=== PATIENT | female | born 1955 | race Caucasian/White ===

== ENCOUNTER 2017-05-14 01:21 | Emergency (ER) | payer OTHER, SELFPAY ==
[2017-05-14 01:22] VITALS: BP 159/89; PULSE 150; RESP 16; TEMP 36.6; O2SAT 99; BMI 26.5
--- NOTE | 2017-05-14 01:30 | HMH.EDARPALP ---
ED Disposition Clinical Impression: Atrial flutter Qualifiers: Atrial flutter type: unspecified Qualified Code(s): I48.92 - Unspecified atrial flutter Disposition: Home, Self-Care Condition on Discharge: Good Instructions: DI for Atrial Flutter Additional Instructions: see card today at 0900 - Critical Care Critical Care Time: No Attestation: On 05/14/17, the high probability of a clinically significant, sudden or life threatening deterioration of the following system(s) required my full and direct attention, intervention and personal management. The time I documented below is in addition to time spent performing reported procedures but includes the following listed in this critical care notation. Medical Decision Making - Medical Records Medical records reviewed: Yes: I reviewed the patient's medical records. Vital Signs: 05/14/17 01:22 05/14/17 01:52 05/14/17 01:54 Temperature 98 F Temperature Source Oral Pulse Rate [Right Brachial] 150 H 70 Respiratory Rate 16 16 Blood Pressure [Right Arm] 159/89 157/86 Blood Pressure Mean [Right Arm] 112 109 02 Sat by Pulse Oximetry 99 100 Oxygen Delivery Method Room Air 05/14/17 05:14 Temperature Temperature Source Pulse Rate [Right Brachial] 65 Respiratory Rate 16 Blood Pressure [Right Arm] 192/75 Blood Pressure Mean [Right Arm] 114 02 Sat by Pulse Oximetry 99 Oxygen Delivery Method Room Air - Lab Data Lab results reviewed: Yes: I reviewed the patient's lab results. Lab Results 05/14/17 01:40: WBC 8.7, RBC 4.67, Hgb 14.3, Hct 42.8, MCV 91.6, MCH 30.6, MCHC 33.4, RDW 12.0, Plt Count 280, MPV 7.0 L, Neut % (Auto) 67.0, Lymph % (Auto) 23.8, [place] % (Auto) 5.1, Eos % (Auto) 2.2, Baso % (Auto) 0.4, Neut # (Auto) 5.8, Lymph # (Auto) 2.1, [place] # (Auto) 0.4, Eos # (Auto) 0.2, Baso # (Auto) 0.0 05/14/17 01:40: Sodium 141, Potassium 3.7, Chloride 104, Carbon Dioxide 26, Anion Gap 14.7, BUN 16, Creatinine 1.01, Estimated Creat Clear 62, Estimated GFR 56 L, Est GFR ( Amer) 67, Glucose 109 H, Calcium 9.3, Total Bilirubin 0.5, AST 20, ALT 37, Alkaline Phosphatase 100, Total Creatine Kinase 104, CK-MB (CK-2) 1.2, CK-MB (CK-2) Rel Index 1.2, Troponin I < 0.02, Total Protein 7.8, Albumin 3.9, Globulin 3.9 H, Albumin/Globulin Ratio 1.0 L, TSH 3.64, Thyroxine (T4) 7.5 05/14/17 05:10: Troponin I < 0.02 Result diagrams: 05/14/17 01:40 05/14/17 01:40 Orders (Tests/Meds): ED MEDICATIONS Generic Name Dose Route Start Last Admin Trade Name Freq PRN Reason Stop Dose Admin Diltiazem HCl 100 mg/ Sodium 100 mls @ 5 mls/hr 05/14/17 02:03 Chloride IV 06/13/17 02:02 .Q20H KRISHNA Protocol Discontinued Medications Generic Name Dose Route Start Last Admin Trade Name Freq PRN Reason Stop Dose Admin Adenosine 6 mg 05/14/17 01:31 05/14/17 01:40 Adenosine 6mg/2ml Vial IV 05/14/17 01:32 6 mg ONCE ONE Administration Diltiazem HCl 0 mg 05/14/17 01:48 Cardizem 100mg Adv IV 05/14/17 01:49 ONCE ONE Protocol Diltiazem HCl 10 mg 05/14/17 01:46 05/14/17 01:50 Cardizem 25mg/5ml Vial IV 05/14/17 01:47 10 mg ONCE ONE Administration ORDERS Category Date Time Status ECG Request by /Peter Stat Y 05/14/17 01:32 Ordered - Radiology Data #1 Image(s): Chest Image Reviewed: Yes I reviewed the patient's radiology image Preliminary Findings: Normal/NAD - ECG Data Tracing #1 I reviewed this ECG and interpreted as documented below: Arrhythmias present: aflutter Ischemic changes: non-specific ST-T wave changes Tracing #2 I reviewed this ECG and interpreted as documented below: Normal Sinus Rhythm: Yes Ischemic changes: non-specific ST-T wave changes - Alejo Inquiry Pt receiving controlled substance: No Arrhythmia/Palpitations HPI - General Chief Complaint: Arrhythmia/Palpitations Stated Complaint: PALPITATIONS Time Seen by Provider: 05/14/17 01:30 Mode of Arrival: Ambul
--- NOTE | 2017-05-14 01:32 | XR_ITS ---
XR chest portable HISTORY: ITS.REASON: PALPITATIONS ORDERING PHYSICIAN: Tony Sims MD PATIENT AGE: 61 years COMPARISON: None available FINDINGS: Mild cardiomegaly without failure. Lungs are clear bilaterally. No acute bony anomalies. IMPRESSION: Borderline cardiomegaly otherwise negative with no acute finding.
--- NOTE | 2017-05-14 01:41 | ED_ITS ---
ED Disposition Clinical Impression: Atrial flutter Qualifiers: Atrial flutter type: unspecified Qualified Code(s): I48.92 - Unspecified atrial flutter Disposition: Home, Self-Care Condition on Discharge: Good Instructions: DI for Atrial Flutter Additional Instructions: see card today at 0900 - Critical Care Critical Care Time: No Attestation: On 05/14/17, the high probability of a clinically significant, sudden or life threatening deterioration of the following system(s) required my full and direct attention, intervention and personal management. The time I documented below is in addition to time spent performing reported procedures but includes the following listed in this critical care notation. Medical Decision Making - Medical Records Medical records reviewed: Yes: I reviewed the patient's medical records. Vital Signs: 05/14/17 01:22 05/14/17 01:52 05/14/17 01:54 Temperature 98 F Temperature Source Oral Pulse Rate [Right Brachial] 150 H 70 Respiratory Rate 16 16 Blood Pressure [Right Arm] 159/89 157/86 Blood Pressure Mean [Right Arm] 112 109 02 Sat by Pulse Oximetry 99 100 Oxygen Delivery Method Room Air 05/14/17 05:14 Temperature Temperature Source Pulse Rate [Right Brachial] 65 Respiratory Rate 16 Blood Pressure [Right Arm] 192/75 Blood Pressure Mean [Right Arm] 114 02 Sat by Pulse Oximetry 99 Oxygen Delivery Method Room Air - Lab Data Lab results reviewed: Yes: I reviewed the patient's lab results. Lab Results 05/14/17 01:40: WBC 8.7, RBC 4.67, Hgb 14.3, Hct 42.8, MCV 91.6, MCH 30.6, MCHC 33.4, RDW 12.0, Plt Count 280, MPV 7.0 L, Neut % (Auto) 67.0, Lymph % (Auto) 23.8, [place] % (Auto) 5.1, Eos % (Auto) 2.2, Baso % (Auto) 0.4, Neut # (Auto) 5.8 , Lymph # (Auto) 2.1, [place] # (Auto) 0.4, Eos # (Auto) 0.2, Baso # (Auto) 0.0 05/14/17 01:40: Sodium 141, Potassium 3.7, Chloride 104, Carbon Dioxide 26, Anion Gap 14.7, BUN 16, Creatinine 1.01, Estimated Creat Clear 62, Estimated GFR 56 L, Est GFR ( Amer) 67, Glucose 109 H, Calcium 9.3, Total Bilirubin 0.5, AST 20, ALT 37, Alkaline Phosphatase 100, Total Creatine Kinase 104, CK-MB (CK-2) 1.2, CK-MB (CK-2) Rel Index 1.2, Troponin I < 0.02, Total Protein 7.8, Albumin 3.9, Globulin 3.9 H, Albumin/Globulin Ratio 1.0 L, TSH 3.64 , Thyroxine (T4) 7.5 05/14/17 05:10: Troponin I < 0.02 Result diagrams: 05/14/17 01:40 05/14/17 01:40 Orders (Tests/Meds): ED MEDICATIONS Generic Name Dose Route Start Last Admin Trade Name Freq PRN Reason Stop Dose Admin Diltiazem HCl 100 mg/ Sodium 100 mls @ 5 mls/hr 05/14/17 02:03 Chloride IV 06/13/17 02:02 .Q20H KRISHNA Protocol Discontinued Medications Generic Name Dose Route Start Last Admin Trade Name Freq PRN Reason Stop Dose Admin Adenosine 6 mg 05/14/17 01:31 05/14/17 01:40 Adenosine 6mg/2ml Vial IV 05/14/17 01:32 6 mg ONCE ONE Administration Diltiazem HCl 0 mg 05/14/17 01:48 Cardizem 100mg Adv IV 05/14/17 01:49 ONCE ONE Protocol Diltiazem HCl 10 mg 05/14/17 01:46 05/14/17 01:50 Cardizem 25mg/5ml Vial IV 05/14/17 01:47 10 mg ONCE ONE Administration ORDERS Category Date Time Status ECG Re
[2017-05-14 01:52] VITALS: BP 157/86
[2017-05-14 01:54] VITALS: PULSE 70; RESP 16; O2SAT 100
[2017-05-14 03:35] LABS: Red Blood Count 4.67 M/mm3 (4.20-5.40); White Blood Count 8.7 K/mm3 (4.8-10.8)
[2017-05-14 03:36] LABS: Basophils % 0.4 % (0.1-2.0); Eosinophils # 0.2 K/mm3 (0.0-0.4); Eosinophils % 2.2 % (0.1-12.0); Hematocrit 42.8 % (37.0-47.0); Hemoglobin 14.3 g/dL (12.2-16.2); Lymphocytes # 2.1 K/mm3 (0.7-4.5); Lymphocytes % 23.8 K/mm3 (10-50); Mean Corpuscular HGB Conc 33.4 g/dL (31.8-35.4); Mean Corpuscular Hemoglobin 30.6 pg (27.0-31.2); Mean Corpuscular Volume 91.6 fl (81-99); Monocytes # 0.4 K/mm3 (0.1-1.0); Monocytes % 5.1 % (1.7-9.3); Neutrophils # 5.8 K/mm3 (1.8-7.8); Platelet Count 280 K/mm3 (142-424)
[2017-05-14 03:37] LABS: Anion Gap 14.7 mEq/L (5-15); CKMB Relative Index 1.2 U/L (0-4.0); Carbon Dioxide 26 mmol/L (21.0-32.0); Chloride 104 mmol/L (98-107); Creatine Kinase 104 U/L (26-192); Creatine Kinase MB 1.2 mg/ml (0.0-3.6); Potassium 3.7 mmoL/L (3.5-5.1); Sodium 141 mmol/L (136-145); Troponin I < 0.02 ng/ml (0.00-0.06)
[2017-05-14 03:38] LABS: Alanine Aminotransferase 37 U/L (12-78); Albumin Level 3.9 gm/dL (3.4-5.0); Alkaline Phosphatase 100 U/L (46-116); Aspartate Amino Transferase 20 U/L (15-37); Bilirubin,Total 0.5 mg/dL (0.2-1.0); Blood Urea Nitrogen 16 mg/dL (7-18); Calcium 9.3 mg/dL (8.5-10.1); Creatinine Clearance Estimated 62 mL/min (0-300); Creatinine,Serum 1.01 mg/dL (0.55-1.02); Estimated Glomerular Filt Rate 56 ml/min (>60); GFR (African American) 67 ML/MIN (>60); Globulin 3.9 gm/dl (1.3-3.2); Glucose 109 mg/dL (74-106); Total Protein,Serum 7.8 gm/dL (6.4-8.2)
[2017-05-14 03:39] LABS: T4 (Thyroxine) 7.5 ug/dl (4.7-13.3); Thyroid Stimulating Hormone 3.64 uIU/ml (0.358-3.740)
[2017-05-14 05:14] VITALS: BP 192/75; PULSE 65; RESP 16; O2SAT 99
[2017-05-14 05:31] LABS: Troponin I < 0.02 ng/ml (0.00-0.06)
[2017-05-14 05:40] VITALS: BP 192/75; PULSE 65; RESP 16; TEMP 36.6
== END 2017-05-14 05:41 | disposition home or self-care (01) ==
PROVIDERS: Emergency Provider Emergency Medicine
DX: R00.2 Palpitations (principal); I48.92 Unspecified atrial flutter; Z88.6 Allergy status to analgesic agent; Z88.7 Allergy status to serum and vaccine
CPT/HCPCS: 71045; 80053; 82550; 82553; 84436; 84443; 84484; 85025; 93005; 93041; 96365; 96375; 99284

== ENCOUNTER → 2017-05-22 09:23 | Outpatient (CLI) | payer OTHER, SELFPAY ==
--- NOTE | 2017-05-22 09:26 | CA_ITS ---
PROCEDURE: 2-D M-mode and color Doppler study INDICATIONS FOR THE TEST: Chest pain COPD Heart Murmur Tobacco Smoking Palpitations Fatigue Syncope Edema HypertensionxDiabetes Mellitus Rheumatic Fever SOB GERARDO Obesity Hyperlipidemia Family History HD Additional History PATIENT INFORMATION HEIGHT: 5' 3'' WEIGHT: 153 GENDER: Female B/P: 154/80 2-D/M-MODE INTERPRETATION: 2-D MEASUREMENTS OBSERVED VALUES IN CMS Right Ventricular Dimension (RVDd) 2.2 Interventricular Septum (Thickness)(IVsd) 1.1 Left Ventricular Internal Dimensions(LVIDd) 5.0 Left Ventricular Posterior Wall (Thickness)(LVPWd) 1.1 Aortic Root 2.6 Aortic Cusp Separation Left Atrial Dimensions (LAD) 3.7 2D 1. Left atrium is mildly enlarged, left ventricle is normal size, visually estimated ejection fraction 55% with no obvious regional wall motion abnormality. 2. The right atrium and right ventricle are normal size and contractility. 3. The aortic valve is minimally thickened and fibrosed. 4. The mitral and tricuspid valve leaflets are minimally thickened. 5. The pulmonic valve is poorly visualized 6. No significant pericardial effusion noted. DOPPLER INTERROGATION: Doppler interrogation of the aortic, mitral and tricuspid valvular presence of mild mitral, mild aortic and tricuspid regurgitation, tricuspid and jet velocity insufficient for calculation of the right ventricular systolic pressure, diastolic parameters are inconclusive. CONCLUSION: 1. Mildly enlarged left atrium, normal left ventricular size, mild concentric left ventricular hypertrophy, visually estimated ejection fraction 55% with no obvious regional wall motion abnormality, diastolic parameters are inconclusive. 2. Mild aortic, mild mitral and tricuspid regurgitation 3. No significant pericardial effusion noted.
== END ==
PROVIDERS: PCP Internal Medicine; Visit Provider Internal Medicine
DX: R00.2 Palpitations (principal); I48.92 Unspecified atrial flutter; Z82.49 Family history of ischemic heart disease and other diseases of the circulatory system
CPT/HCPCS: 93306

== ENCOUNTER → 2017-06-06 09:51 | Outpatient (CLI) | payer OTHER, SELFPAY ==
[2017-06-06 10:15] LABS: Basophils # 0.1 K/mm3 (0-0.2); Basophils % 0.8 % (0.1-2.0); Eosinophils # 0.3 K/mm3 (0.0-0.4); Eosinophils % 4.2 % (0.1-12.0); Hematocrit 44.7 % (37.0-47.0); Hemoglobin 14.4 g/dL (12.2-16.2); Lymphocytes # 1.9 K/mm3 (0.7-4.5); Lymphocytes % 28.8 K/mm3 (10-50); Mean Corpuscular HGB Conc 32.2 g/dL (31.8-35.4); Mean Corpuscular Hemoglobin 29.7 pg (27.0-31.2); Mean Corpuscular Volume 92.2 fl (81-99); Mean Platelet Volume 7.2 fl (7.4-10.4); Monocytes # 0.3 K/mm3 (0.1-1.0); Monocytes % 4.7 % (1.7-9.3); Neutrophils % 61.6 % (37.0-80.0); Platelet Count 372 K/mm3 (142-424); Red Blood Count 4.84 M/mm3 (4.20-5.40); Red Cell Distribution Width 11.7 % (11.5-17.5); White Blood Count 6.5 K/mm3 (4.8-10.8)
[2017-06-06 10:32] LABS: Alanine Aminotransferase 41 U/L (12-78); Albumin Level 3.7 gm/dL (3.4-5.0); Alkaline Phosphatase 99 U/L (46-116); Aspartate Amino Transferase 16 U/L (15-37); Bilirubin,Direct 0.1 mg/dL (0.0-0.2); Bilirubin,Total 0.3 mg/dL (0.2-1.0); Blood Urea Nitrogen 17 mg/dL (7-18); Carbon Dioxide 29 mmol/L (21.0-32.0); Chloride 107 mmol/L (98-107); Chol/HDL Ratio 2.3 (1-3.5); Cholesterol 204 mg/dL (140-200); Creatinine,Serum 1.02 mg/dL (0.55-1.02); Estimated Glomerular Filt Rate 55 ml/min (>60); Free T4 (Free Thyroxine) 0.92 ng/dl (0.76-1.46); GFR (African American) 66 ML/MIN (>60); Glucose 101 mg/dL (74-106); HDL Cholesterol 87 mg/dL (29-89); LDL Cholesterol 103 mg/dL (0-130); Sodium 143 mmol/L (136-145); Thyroid Stimulating Hormone 2.23 uIU/ml (0.358-3.740); Total Protein,Serum 7.9 gm/dL (6.4-8.2); Triglycerides 71 mg/dL (30-200); VLDL Cholesterol 14 mg/dL (0-40)
== END ==
PROVIDERS: Visit Provider Internal Medicine Cardiovascular Disease
DX: I48.92 Unspecified atrial flutter (principal); I10 Essential (primary) hypertension; R00.2 Palpitations
CPT/HCPCS: 36415; 80048; 80061; 80076; 84439; 84443; 85025

== ENCOUNTER → 2018-11-09 08:51 | Outpatient (CLI) | payer OTHER, SELFPAY ==
[2018-11-09 18:01] LABS: Alanine Aminotransferase 26 U/L (12-78); Albumin Level 3.8 gm/dL (3.4-5.0); Alkaline Phosphatase 86 U/L (46-116); Aspartate Amino Transferase 13 U/L (15-37); Bilirubin,Direct 0.1 mg/dL (0.0-0.2); Bilirubin,Indirect 0.2 mg/dL (0.0-0.9); Bilirubin,Total 0.3 mg/dL (0.2-1.0); Chol/HDL Ratio 2.1 (1-3.5); Cholesterol 224 mg/dL (140-200); HDL Cholesterol 109 mg/dL (29-89); LDL Cholesterol 104 mg/dL (0-130); Total Protein,Serum 7.6 gm/dL (6.4-8.2); Triglycerides 57 mg/dL (30-200); VLDL Cholesterol 11 mg/dL (0-40)
== END ==
PROVIDERS: Visit Provider Internal Medicine Cardiovascular Disease
DX: E78.5 Hyperlipidemia, unspecified (principal); I10 Essential (primary) hypertension; I48.92 Unspecified atrial flutter; R00.2 Palpitations
CPT/HCPCS: 36415; 80061; 80076

== ENCOUNTER → 2019-05-21 08:58 | Outpatient (CLI) | payer OTHER, SELFPAY ==
[2019-05-21 10:03] LABS: Alanine Aminotransferase 24 U/L (12-78); Albumin Level 4.6 g/dl (3.5-5.0); Alkaline Phosphatase 86 U/L (38-126); Aspartate Amino Transferase 27 U/L (14-36); Bilirubin,Indirect 0.6 mg/dL (0.0-0.9); Bilirubin,Total 0.6 mg/dl (0.2-1.3); Bilirubin,Unconjugated 0.7 mg/dL (0.0-1.1); Cholesterol 216 mg/dl (140-200); Total Protein,Serum 7.5 g/dl (6.3-8.2); Triglycerides 106 mg/dl (30-150); VLDL Cholesterol 21 mg/dL (0-40)
[2019-05-21 10:15] LABS: Direct LDL Cholesterol 70.88 mg/dL (100-129)
[2019-05-21 10:46] LABS: HDL Cholesterol 134 mg/dl (40-60)
== END ==
PROVIDERS: Visit Provider Internal Medicine Cardiovascular Disease
DX: E78.5 Hyperlipidemia, unspecified (principal); I10 Essential (primary) hypertension; I48.91 Unspecified atrial fibrillation
CPT/HCPCS: 36415; 80061; 80076

== ENCOUNTER 2021-11-27 00:28 | Emergency (ER) | payer MEDICARE, SELFPAY ==
[2021-11-27 00:30] VITALS: BP 175/85; PULSE 99; RESP 16; TEMP 36.6; O2SAT 99; BMI 26.5
--- NOTE | 2021-11-27 00:36 | ECG_ITS ---
APPROVED REPORT Exam: Resting ECG HR:148 bpm ECG Measurements Heart Rate 148 AXES QRSd 85 QRS 39 QT 286 T 66 QTc 371 Conclusion ATRIAL FIBRILLATION WITH RAPID VENTRICULAR RESPONSE WITH ABERRANT CONDUCTION OR VENTRICULAR PREMATURE COMPLEXES NONSPECIFIC ST & T-WAVE ABNORMALITY ABNORMAL RHYTHM ECG UNCONFIRMED REPORT Electronically signed by : Marcos Fisher MD 11/27/2021 13:48:04
--- NOTE | 2021-11-27 00:38 | XR_ITS ---
PROCEDURE INFORMATION: Exam: XR Chest Exam date and time: 11/27/2021 12:57 AM Age: 66 years old Clinical indication: Other: Tachycardia; Additional info: Heart racing TECHNIQUE: Imaging protocol: Radiologic exam of the chest. Views: 1 view. COMPARISON: CR CXR2V XR chest 2V 09/19/2017 2:18 AM FINDINGS: Lungs: Unremarkable. No consolidation. Pleural spaces: Unremarkable. No pleural effusion. No pneumothorax. Heart/Mediastinum: Unremarkable. No cardiomegaly. Bones/joints: Unremarkable. IMPRESSION: No acute findings.
[2021-11-27 00:50] LABS: Coronavirus 19, PCR Not Detected (NotDetected); Influenza A, PCR Not Detected (NotDetected); Influenza B, PCR Not Detected (NotDetected)
[2021-11-27 00:51] LABS: Basophils # 0.1 K/mm3 (0-0.2); Basophils % 1.3 % (0.1-2.0); Eosinophils # 0.4 K/mm3 (0.0-0.4); Eosinophils % 3.8 % (0.1-12.0); Hematocrit 44.5 % (37.0-47.0); Hemoglobin 14.3 g/dL (12.2-16.2); Lymphocytes # 2.5 K/mm3 (0.7-4.5); Lymphocytes % 27.8 % (10-50); Mean Corpuscular Volume 93.5 fl (81-99); Mean Platelet Volume 7.7 fl (7.4-10.4); Monocytes # 0.5 K/mm3 (0.1-1.0); Monocytes % 5.5 % (1.7-9.3); Neutrophils # 5.6 K/mm3 (1.8-7.8); Neutrophils % 61.5 % (37.0-80.0); Platelet Count 408 K/mm3 (142-424); Red Blood Count 4.76 M/mm3 (4.20-5.40); Red Cell Distribution Width 12.4 % (11.5-17.5); White Blood Count 9.1 K/mm3 (4.8-10.8)
--- NOTE | 2021-11-27 00:52 | PC.NURSE ---
edi on phone with dr houston
[2021-11-27 01:00] VITALS: BP 152/84; PULSE 64; RESP 20; O2SAT 99
[2021-11-27 01:00] LABS: Chloride 109 mmol/L (98-107); Potassium 3.8 mmoL/L (3.5-5.1); Sodium 144 mmol/L (136-145)
[2021-11-27 01:02] LABS: Alanine Aminotransferase 27 U/L (12-78); Aspartate Amino Transferase 37 U/L (14-36); Blood Urea Nitrogen 14 mg/dl (7-17); Creatinine Clearance Estimated 59 mL/min (50-200); Estimated Glomerular Filt Rate 72 ml/min (>60); GFR (African American) 87 ML/MIN (>60)
[2021-11-27 01:03] LABS: Albumin/Globulin Ratio 1.5 (1.1-1.8); Alkaline Phosphatase 123 U/L (38-126); Anion Gap 14.8 mEq/L (5-15); Bilirubin,Total 0.3 mg/dl (0.2-1.3); Calcium 10.3 mg/dl (8.4-10.2); Carbon Dioxide 24 mmol/L (22.0-30.0); Globulin 3.4 g/dL (1.3-3.2); Glucose 115 mg/dl (74-100); Total Protein,Serum 8.4 g/dl (6.3-8.2)
[2021-11-27 01:08] LABS: C-Reactive Protein 1.4 mg/L (0-4)
[2021-11-27 01:15] VITALS: BP 153/78; PULSE 118; RESP 16; O2SAT 98
[2021-11-27 01:39] LABS: Erythrocyte Sedimentation Rate 20 mm/hr (0-30)
[2021-11-27 01:40] LABS: T4 (Thyroxine) 7.3 ug/dl (5.53-11.0)
[2021-11-27 01:44] LABS: Troponin I < 0.01 ng/ml (0.00-0.034)
[2021-11-27 01:53] LABS: Thyroid Stimulating Hormone 3.78 uIU/mL (0.465-4.68)
[2021-11-27 02:00] VITALS: BP 150/77; PULSE 59; RESP 16; O2SAT 98
--- NOTE | 2021-11-27 02:20 | HMH.EDARPALP ---
Discharge Plan Disposition Patient Disposition: Home, Self-Care Chief Complaint: Arrhythmia/Palpitations Prescriptions Prescriptions: No Action aspirin [Aspir-81] 81 mg tablet,delayed release (DR/EC) 81 mg PO DAILY losartan 50 mg tablet See Rx Instructions .ROUTE .COMPLEX Rx Instructions: TAKE 1 TABLET BY MOUTH ONCE DAILY FOR HYPERTENSION. atorvastatin [Lipitor] 10 mg tablet 10 mg PO DAILY diltiazem HCl [Cardizem CD] 120 mg capsule,extended release 24hr 120 mg PO DAILY Referrals Follow up/Referrals: Provider,Referral, MD [Primary Care Provider] - See instructions Clinical Impressions Clinical Impression: Atrial fibrillation with rapid ventricular response Instructions Patient Instructions: Cardiac Arrhythmia (Alternative Therapy) Discharge ED Provider: Tony Sims Arrhythmia/Palpitations HPI General Chief Complaint: Arrhythmia/Palpitations Stated Complaint: heart racing Time Seen by Provider: 11/27/21 02:20 Mode of Arrival: Ambulatory Source of Information: Patient and Medical Record Limitations: No Limitations History of Present Illness HPI narrative: pt with increased hr w/o pain or syncope presents for eval - has been compliant with meds complaint: rapid heart beat Onset (ago): hour(s) Duration: constant Severity: moderate Context: occurred during rest Arrhythmia history: atrial fibrillation Associated symptoms: denies other symptoms Treatments prior to arrival: calcium channel shona Related Data Home Medications Medication Instructions Recorded Confirmed aspirin 81 mg tablet,delayed 81 mg PO DAILY heart health 10/22/18 11/27/21 release (Aspir-) atorvastatin 10 mg tablet (Lipitor) 10 mg PO DAILY High cholesterol 11/27/21 11/27/21 diltiazem HCl 120 mg 120 mg PO DAILY Heart rhythm 11/27/21 11/27/21 capsule,extended release 24 hr (Cardizem CD) losartan 50 mg tablet See Rx Instructions .Route 11/27/21 11/27/21 .COMPLEX High blood pressure Allergies Allergy/AdvReac Type Severity Reaction Status Date / Time tetanus and diphtheria Allergy Verified 08/03/21 09:45 toxoids codeine AdvReac Verified 08/03/21 09:45 [facility] Medical History (Updated 11/27/21 @ 02:33 by Tony Sims MD) Atrial flutter High cholesterol HTN (hypertension) Sinus bradycardia Social History Smoking Status: Never smoker alcohol intake: current substance use type: denies use current occupational status: employed Travel in the last 8 weeks: None ROS Obtained: Yes All systems reviewed & no additional complaints except as documented Physical Exam General General appearance: alert Head Head exam: normocephalic Eye Eye exam: Present PERRL and EOMI ENT ENT exam: Present mucous membranes moist Neck Neck exam: Present trachea midline Respiratory Respiratory exam: Present normal lung sounds bilaterally Cardiovascular Cardiovascular exam: Present tachycardia, irregular rhythm and systolic murmur Abdominal Exam Abdominal exam: Present soft Extremities Exam Extremities exam: Present full ROM Neurological Exam Neurological exam: Present alert, oriented X3 and CN II-XII intact Psychiatric Psychiatric exam: Present normal affect Skin Skin exam: Absent rash Medical Decision Making Medical Records Medical records reviewed: Yes I reviewed the patient's medical records. Alejo Inquiry Pt receiving controlled substance: No Vital Signs: 11/27/21 00:30 11/27/21 01:00 11/27/21 01:15 Temperature 98 F Temperature Source Oral Pulse Rate 64 118 H Pulse Rate [Right] 99 H Respiratory Rate 16 20 16 Blood Pressure 152/84 H 153/78 H Blood Pressure [Right Arm] 175/85 H Blood Pressure Mean Blood Pressure Mean [Right Arm] 115 02 Sat by Pulse Oximetry 99 99 98 11/27/21 02:00 Temperature Temperature Source Pulse Rate 59 L Pulse Rate [Right] Respiratory Rate 16 Blood Pressure 150/77 H Blood Pressure [Right Arm
[2021-11-27 02:30] VITALS: BP 140/71; PULSE 50; RESP 16; TEMP 36.6; O2SAT 99
[2021-11-27 02:30] LABS: Procalcitonin 0.054 ng/mL (0.0-2.0)
== END 2021-11-27 02:44 | disposition home or self-care (01) ==
PROVIDERS: Emergency Provider Emergency Medicine
DX: I48.91 Unspecified atrial fibrillation (principal); I48.92 Unspecified atrial flutter; I10 Essential (primary) hypertension; R00.2 Palpitations; R00.1 Bradycardia, unspecified; E78.00 Pure hypercholesterolemia, unspecified; Z20.822 Contact with and (suspected) exposure to COVID-19; Z79.01 Long term (current) use of anticoagulants; Z79.82 Long term (current) use of aspirin; Z79.899 Other long term (current) drug therapy; Z88.5 Allergy status to narcotic agent; Z88.7 Allergy status to serum and vaccine
CPT/HCPCS: 71045; 80053; 84145; 84436; 84443; 84484; 85025; 85651; 86140; 93005; 99284; C9803; U0003; U0005

== ENCOUNTER → 2021-12-05 07:40 | Outpatient (CLI) | payer MEDICARE, SELFPAY ==
--- NOTE | 2021-12-05 | CA_ITS ---
APPROVED REPORT EXAM: Comprehensive 2D, Doppler, and color-flow Echocardiogram Family Practitioner: Geeta Lozoya, RCS, RVS Ht: 5 ft 3 in Wt: 156lbs BSA: 1.74 BP: 147/62 mmHg Indications: AFIB, HTN, HLD, Palitations, Murmur 2D Dimensions Aortic Root 2.62 cm LA Volume 68.60 mL Left Atrium 3.38 cm LA Volume Index 39.42 mL/m2 (M/F) 16-34 LVOT 2.01 cm (M/F) 1.5-2.5 M-Mode Dimensions RVDd 2.43 cm (0.9-2.6) LA Diam 4.34 cm (1.9-4.0) LVDd 5.00 cm (3.5-5.7) Ao Diam 3.01 cm (2.0-3.7) LVDs 3.45 cm (3.5-5.7) IVSd 0.80 cm (0.6-1.1) PWd 0.61 cm (0.6-1.1) EF (Teich) 66.70% EPSs 0.38 cm FS 37.30% EDV (Teich) 147.40 mL TAPSE 2.38 (<1.7) ESV (Teich) 49.10 mL LV Diastology E Decel Time 210.00 (160-240 msec) E/A Ratio 1.20 MED E' 6.70 (< 7 cm/sec) MED A' 7.20 cm/s E'/MED E' Ratio 15.13 (>14) LAT E' 8.90 (<10 cm/sec) LAT A' 7.40 cm/s E/LAT E' Ratio 11.39 (>14) Aortic Valve LVOT Max 110.00 (70-110 cm/s) LVOT VTI 30.07 cm AoV Peak Danny. 159.00 (50-130 cm/s) AO Peak GR. 10.10 mmHg AO Mean GR. 4.60 (<5 mmHg) AO VTI 40.29 (18-25 cm) JUANCARLOS (VTI) 2.37 (2.5-4.5 cm2) Mitral Valve MV A Velocity 85.00 (40-130 cm/s) E/A Ratio 1.20 MV Decel. Time 210.00 (160-240 ms) MV Mean Gr. 1.30 (<2mmHg) MV PHT 50.00 ms Pulmonary Valve PV Peak Velocity 91.00 (50-150 cm/s) Tricuspid Valve TR P. Velocity 230.00 cm/s RAP Estimate 10.00 mmHg RVSP 31.20 mmHg Left Ventricle Left atrium is moderately enlarged, left ventricle is normal size, mild concentric left ventricular hypertrophy, estimated ejection fraction 55% with no regional wall motion abnormality, grade 2 diastolic dysfunction seen without tissue Doppler evidence of raise left atrial pressure. Right Ventricle Right atrium and right ventricle are normal size and contractility. Aortic Valve Aortic valve is thickened and calcified without aortic stenosis aortic insufficiency. Mitral Valve Mitral valve leaflets are minimally thickened, there is mild mitral regurgitation. Tricuspid Valve Tricuspid valve grossly normal, there is mild tricuspid regurgitation, tricuspid regurgitation jet velocity is inadequate for calculation of the right ventricular systolic pressure. Pulmonic Valve Pulmonic valve is poorly visualized. Great Vessels Aortic root is normal size. Inferior vena cava is poorly visualized. Pericardium No significant pericardial effusion noted. Conclusion 1. Moderately enlarged left atrium, normal left ventricular size, mild concentric left ventricular hypertrophy, estimated ejection fraction 55% with no regional wall motion abnormality, grade 2 diastolic dysfunction seen without tissue Doppler evidence of raise left atrial pressure. 2. Mild mitral and tricuspid regurgitation. 3. No significant pericardial effusion noted. 4. Inferior vena cava is poorly visualized. Electronically signed by : Tawanda Riley MD 12/05/2021 21:23:00
== END ==
PROVIDERS: Visit Provider Nurse Practitioner Family
DX: I48.0 Paroxysmal atrial fibrillation (principal)
CPT/HCPCS: 93306

== ENCOUNTER → 2022-01-01 08:19 | Outpatient (CLI) | payer MEDICARE, SELFPAY ==
[2022-01-01 09:01] LABS: Basophils # 0.1 K/mm3 (0-0.2); Basophils % 2.1 % (0.1-2.0); Eosinophils # 0.3 K/mm3 (0.0-0.4); Hematocrit 38.9 % (37.0-47.0); Hemoglobin 12.8 g/dL (12.2-16.2); Lymphocytes # 1.8 K/mm3 (0.7-4.5); Lymphocytes % 29.6 % (10-50); Mean Corpuscular Hemoglobin 30.9 pg (27.0-31.2); Mean Corpuscular Volume 93.7 fl (81-99); Mean Platelet Volume 7.2 fl (7.4-10.4); Monocytes # 0.4 K/mm3 (0.1-1.0); Monocytes % 5.7 % (1.7-9.3); Neutrophils # 3.5 K/mm3 (1.8-7.8); Neutrophils % 57.6 % (37.0-80.0); Platelet Count 372 K/mm3 (142-424); Red Blood Count 4.15 M/mm3 (4.20-5.40); Red Cell Distribution Width 12.3 % (11.5-17.5); White Blood Count 6.2 K/mm3 (4.8-10.8)
[2022-01-01 09:34] LABS: Alanine Aminotransferase 43 U/L (12-78); Albumin Level 4.1 g/dl (3.5-5.0); Alkaline Phosphatase 116 U/L (38-126); Anion Gap 11.9 mEq/L (5-15); Aspartate Amino Transferase 38 U/L (14-36); Bilirubin,Direct 0.1 mg/dl (0.0-0.4); Bilirubin,Indirect 0.2 mg/dL (0.0-0.9); Bilirubin,Total 0.3 mg/dl (0.2-1.3); Bilirubin,Unconjugated 0.2 mg/dL (0.0-1.1); Blood Urea Nitrogen 15 mg/dl (7-17); Calcium 9.4 mg/dl (8.4-10.2); Carbon Dioxide 25 mmol/L (22.0-30.0); Chloride 107 mmol/L (98-107); Chol/HDL Ratio 2.5 (1-3.5); Cholesterol 226 mg/dl (140-200); Estimated Glomerular Filt Rate 62 ml/min (>60); GFR (African American) 76 ML/MIN (>60); Glucose 90 mg/dl (74-100); HDL Cholesterol 90 mg/dl (40-60); Potassium 3.9 mmoL/L (3.5-5.1); Sodium 140 mmol/L (136-145); Total Protein,Serum 6.8 g/dl (6.3-8.2); Triglycerides 135 mg/dl (30-150); VLDL Cholesterol 27 mg/dL (0-40)
[2022-01-01 09:45] LABS: Direct LDL Cholesterol 97.82 mg/dL (100-129)
[2022-01-01 09:50] LABS: Free T4 (Free Thyroxine) 0.71 ng/dl (0.78-2.19)
[2022-01-01 10:03] LABS: Thyroid Stimulating Hormone 2.98 uIU/mL (0.465-4.68)
== END ==
PROVIDERS: Visit Provider Nurse Practitioner Family
DX: E78.2 Mixed hyperlipidemia (principal); I48.0 Paroxysmal atrial fibrillation; I10 Essential (primary) hypertension
CPT/HCPCS: 36415; 80048; 80061; 80076; 84439; 84443; 85025

== ENCOUNTER → 2022-01-15 08:07 | Outpatient (CLI) | payer MEDICARE, SELFPAY ==
[2022-01-15 09:31] LABS: Chloride 99 mmol/L (98-107); Sodium 139 mmol/L (136-145)
[2022-01-15 09:32] LABS: Potassium 3.7 mmoL/L (3.5-5.1)
[2022-01-15 09:35] LABS: Anion Gap 11.7 mEq/L (5-15); Blood Urea Nitrogen 12 mg/dl (7-17); Calcium 9.4 mg/dl (8.4-10.2); Carbon Dioxide 32 mmol/L (22.0-30.0); Estimated Glomerular Filt Rate 62 ml/min (>60); GFR (African American) 76 ML/MIN (>60); Glucose 93 mg/dl (74-100)
== END ==
PROVIDERS: PCP Physician Assistant; Visit Provider Physician Assistant
DX: E78.2 Mixed hyperlipidemia (principal); I10 Essential (primary) hypertension; I48.0 Paroxysmal atrial fibrillation
CPT/HCPCS: 36415; 80048

== ENCOUNTER 2022-05-12 13:18 | Emergency (ER) | payer MEDICARE, SELFPAY ==
[2022-05-12 13:50] VITALS: BP 117/86; PULSE 64; RESP 19; TEMP 37; O2SAT 98; BMI 26.0
--- NOTE | 2022-05-12 14:23 | EXP.UTC ---
Discharge Plan Disposition Patient Disposition: Home, Self-Care Condition: Good Prescriptions Prescriptions: New ondansetron 4 mg tablet,disintegrating 4 mg PO Q8H PRN (Reason: nausea and vomiting) Qty: 10 0RF No Action aspirin [Aspir-81] 81 mg tablet,delayed release (DR/EC) 81 mg PO DAILY diltiazem HCl 180 mg capsule,extended release 24 hr 180 mg PO DAILY Qty: 90 1RF omeprazole-sodium bicarbonate [Zegerid] 20-1.1 mg-gram capsule 1 cap PO DAILY atorvastatin [Lipitor] 10 mg tablet 10 mg PO DAILY Qty: 30 4RF hydrochlorothiazide 25 mg tablet 12.5 mg PO DIRECTED Qty: 90 3RF Rx Instructions: Take on MWF only. Eliquis 5 mg tablet 5 mg PO BID Qty: 180 3RF digoxin 125 mcg (0.125 mg) tablet 125 mcg PO DAILY Qty: 30 3RF omeprazole 40 mg capsule,delayed release(DR/EC) 40 mg PO DAILY Qty: 90 1RF losartan 50 mg tablet See Rx Instructions .ROUTE .COMPLEX Rx Instructions: TAKE 1 TABLET BY MOUTH ONCE DAILY FOR HYPERTENSION. Referrals Follow up/Referrals: Provider,Referral, MD [Primary Care Provider] - See instructions Activity Restrictions/Add. Instructions Additional Instructions/Restrictions: Continue taking medication as prescribed for Acid Reflux Follow up with your Family Doctor or Cardiology if symptoms continue Straight to ER if any life threatening symptoms, chest pain shortness of breath etc Return if needed Clinical Impressions Clinical Impression: Nausea Stand Alone Forms Stand Alone Forms: Work/School Release Instructions Patient Instructions: DI for Nausea -- Adult, Ondansetron Discharge ED Provider: Bell Arias [facility] General Stated complaint: Persistant Nausea Mode of Arrival: Ambulatory Source of Information: Patient Limitations: No Limitations Time Seen by Provider: 05/12/22 14:23 Description of Symptoms (Recalled from Triage Doc. by RN): PATIENT C/O NAUSEA AND ACID REFLUX X 1 WEEK HEENT Symptoms (Recalled from RN notes): No Resp Symptoms (Recalled from RN notes): No Skin Symptoms (Recalled from RN notes): No MS Symptoms (Recalled from RN notes): No Functional Status (Recalled from RN notes): WNL History of Present Illness Provider Complaint: Patient states that she has been having issues with acid reflux, states that she seen her Furniture Stainer and they started her on Medication but told her it would be a couple weeks before it kicked in working well States That sometimes she has a little nausea with it especially after eating States that this morning she was unable to go to work due to the nausea States that she is not having any chest pain, denies dyspnea, denies reflux at this time Related Data Home Medications Medication Instructions Recorded Confirmed aspirin 81 mg tablet,delayed 81 mg PO DAILY heart health 10/22/18 05/02/22 release (Aspir-) losartan 50 mg tablet See Rx Instructions .Route 11/27/21 05/02/22 .COMPLEX High blood pressure omeprazole 20 mg-sodium 1 cap PO DAILY 05/02/22 05/02/22 bicarbonate 1.1 gram capsule (Zegerid) Previous Rx's Medication Instructions Recorded diltiazem HCl 180 mg capsule,24 180 mg PO DAILY #90 caps 11/27/21 hr,extended release atorvastatin 10 mg tablet (Lipitor) 10 mg PO DAILY High cholesterol 12/31/21 #30 tabs hydrochlorothiazide 25 mg tablet 12.5 mg PO DIRECTED #90 tabs 01/14/22 apixaban 5 mg tablet (Eliquis) 5 mg PO BID #180 tabs 02/04/22 digoxin 125 mcg (0.125 mg) tablet 125 mcg PO DAILY #30 tabs 04/29/22 omeprazole 40 mg capsule,delayed 40 mg PO DAILY #90 caps 05/07/22 release ondansetron 4 mg disintegrating 4 mg PO Q8H PRN nausea and 05/12/22 tablet vomiting #10 tabs Allergies Allergy/AdvReac Type Severity Reaction Status Date / Time tetanus and diphtheria Allergy Verified 05/02/22 13:30 toxoids codeine AdvReac Verified 05/02/22 13:30 Worker's Comp Is this a Worker's Comp case?: No PFS PFS Disclaimer: The inform
[2022-05-12 14:24] VITALS: BP 117/86; PULSE 64; RESP 19; TEMP 37; O2SAT 98
== END 2022-05-12 14:39 | disposition home or self-care (01) ==
PROVIDERS: Emergency Provider Nurse Practitioner
DX: R11.0 Nausea (principal)
CPT/HCPCS: 99212; 99213; G0463

== ENCOUNTER 2022-05-25 14:59 | Observation (INO) | payer MEDICARE, SELFPAY ==
[2022-05-25] VITALS (11 sets, daily range): BP systolic 93–126; BP diastolic 37–96; PULSE 47–90; RESP 15–18; TEMP 36.4–36.8; O2SAT 97–100; BMI 23.9; BMI 23.4
[2022-05-25 15:49] LABS: Chloride 94 mmol/L (98-107); Potassium 3.3 mmoL/L (3.5-5.1); Sodium 133 mmol/L (136-145)
[2022-05-25 15:51] LABS: Blood Urea Nitrogen 26 mg/dl (7-17); Creatinine Clearance Estimated 16 mL/min (50-200); Estimated Glomerular Filt Rate 14 ml/min (>60); GFR (African American) 17 ML/MIN (>60)
[2022-05-25 15:52] LABS: Alanine Aminotransferase 26 U/L (12-78); Albumin Level 4.3 g/dl (3.5-5.0); Albumin/Globulin Ratio 1.4 (1.1-1.8); Alkaline Phosphatase 118 U/L (38-126); Anion Gap 12.3 mEq/L (5-15); Aspartate Amino Transferase 30 U/L (14-36); Bilirubin,Total 0.8 mg/dl (0.2-1.3); Calcium 8.8 mg/dl (8.4-10.2); Carbon Dioxide 30 mmol/L (22.0-30.0); Globulin 3.1 g/dL (1.3-3.2); Glucose 101 mg/dl (74-100); Total Protein,Serum 7.4 g/dl (6.3-8.2)
--- NOTE | 2022-05-25 15:52 | ECG_ITS ---
APPROVED REPORT Exam: Resting ECG HR:47 bpm ECG Measurements Heart Rate 47 AXES NE 196 P 53 QRSd 102 QRS 33 QT 412 T 71 QTc 374 Conclusion SINUS BRADYCARDIA NONSPECIFIC ST & T-WAVE ABNORMALITY BORDERLINE ECG UNCONFIRMED REPORT Electronically signed by : Marcos Fisher MD 05/26/2022 21:07:42
[2022-05-25 16:04] LABS: Troponin I 0.04 ng/ml (0.00-0.034)
[2022-05-25 16:17] LABS: Basophils # 0.1 K/mm3 (0-0.2); Basophils % 0.9 % (0.1-2.0); Eosinophils # 0.2 K/mm3 (0.0-0.4); Eosinophils % 1.7 % (0.1-12.0); Hematocrit 37.9 % (37.0-47.0); Hemoglobin 12.8 g/dL (12.2-16.2); Lymphocytes # 1.9 K/mm3 (0.7-4.5); Lymphocytes % 14.5 % (10-50); Mean Corpuscular HGB Conc 33.9 g/dL (31.8-35.4); Mean Corpuscular Hemoglobin 29.9 pg (27.0-31.2); Mean Corpuscular Volume 88.3 fl (81-99); Mean Platelet Volume 8.5 fl (7.4-10.4); Monocytes % 7.5 % (1.7-9.3); Neutrophils # 9.7 K/mm3 (1.8-7.8); Neutrophils % 75.4 % (37.0-80.0); Platelet Count 455 K/mm3 (142-424); Red Blood Count 4.29 M/mm3 (4.20-5.40); Red Cell Distribution Width 12.3 % (11.5-17.5); White Blood Count 12.9 K/mm3 (4.8-10.8)
--- NOTE | 2022-05-25 17:01 | PC.NURSE ---
speaking to about possible admission
--- NOTE | 2022-05-25 17:03 | CT_ITS ---
PROCEDURE INFORMATION: Exam: CT Abdomen And Pelvis Without Contrast Exam date and time: 05/25/2022 5:13 PM Age: 66 years old Clinical indication: Condition or disease; Kidney or ureter condition; Acute renal insufficiency; Additional info: Renal failure TECHNIQUE: Imaging protocol: Computed tomography of the abdomen and pelvis without contrast. Radiation optimization: All CT scans at this facility use at least one of these dose optimization techniques: automated exposure control; mA and/or kV adjustment per patient size (includes targeted exams where dose is matched to clinical indication); or iterative reconstruction. REPORTING DATA: Count of CT and Cardiac NM exams in prior 12 months: This patient has received 0 known CTs and 0 known cardiac nuclear medicine studies in the 12 months prior to the current study. COMPARISON: CR XR CHEST PORTABLE 11/27/2021 12:57 AM FINDINGS: Lungs: No acute findings in the visualized lower lungs. No consolidation. Heart: The heart is not enlarged. Trace pericardial effusion. Coronary arteries: Some coronary calcifications noted. Liver: A 3 cm hypoattenuating subcapsular/subdiaphragmatic liver lesion at the periphery of the medial segment of the left lobe, see sagittal series 1002, image 29, coronal image 28, axial series 3, image 21. This has HU density of 29, indeterminate, probably benign lesion such as hemangioma but there are no older exams available to document stability. No hepatomegaly. Gallbladder and bile ducts: The gallbladder is unremarkable. No calcified stones or intrahepatic biliary dilatation. Common duct measures approximately 9 mm, within normal limits for a 66-year-old. Pancreas: Fatty atrophic/infiltrative changes of the pancreas. No ductal dilatation. Spleen: No splenomegaly. Calcified granulomas. Adrenal glands: The adrenal glands are normal. Kidneys and ureters: There is a 4 mm nonobstructing left lower pole renal calculus coronal series 1001, image 40. No hydronephrosis, hydroureter, or calcified obstructing ureteral stones are seen on the right or left. There is perinephric soft tissue stranding which is greater on the left. Question slight urothelial thickening of the left renal pelvis coronal series 1001, image 40. No definite renal mass is seen on this nonenhanced exam. Stomach and bowel: The stomach is normal. Diverticulosis coli. No CT findings to confirm acute diverticulitis.There is no evidence of intestinal perforation or obstruction. Appendix: A normal appendix is identified. Intraperitoneal space: There is no free intraperitoneal air. There is no significant free intraperitoneal fluid. Vasculature: There is no aortic aneurysm. The vasculature demonstrates scattered mild atherosclerotic calcification. Lymph nodes: No significantly enlarged lymph nodes by short axis criteria. Urinary bladder: The urinary bladder is unremarkable for the degree of distension, not well filled. No calcified stones. Reproductive: No acute findings as visualized. Vascular calcification or tiny calcified fibroid in the uterus. Bones/joints: There are spinal degenerative changes, with multilevel disc narrrowing and spondylosis.There is no evidence of acute fracture. There are no lytic skeletal lesions seen. Soft tissues: Unremarkable. IMPRESSION: 1. Tiny nonobstructing left renal calculus. No hydronephrosis, hydroureter, or obstructing calcified ureteral stones. 2. Nonspecific bilateral perinephric soft tissue stranding, greater on the left. Question minimal left urothelial thickening, correlate for history of UTI. 3. Hypoattenuating 3 cm liver lesion which may be benign bharti
--- NOTE | 2022-05-25 17:05 | PC.NURSE ---
PLACED PT ON HOSPITAL MONITOR FOR ADMINISTRATION OF POTASSIUM.
--- NOTE | 2022-05-25 17:07 | HMH.EDGENADL ---
Discharge Plan Disposition Patient Disposition: Admitted As Inpatient Condition: Fair Chief Complaint: Nausea/Vomiting/Diarrhea Prescriptions Prescriptions: No Action aspirin [Aspir-81] 81 mg tablet,delayed release (DR/EC) 81 mg PO DAILY diltiazem HCl 120 mg capsule,extended release 24 hr 120 mg PO DAILY pantoprazole 40 mg tablet,delayed release (DR/EC) 40 mg PO DAILY Label Comments: TAKE 1 TABLET BY MOUTH ONCE DAILY famotidine 20 mg tablet 20 mg PO DAILY sucralfate 1 gram tablet 1 g PO QACHS atorvastatin [Lipitor] 10 mg tablet 10 mg PO DAILY Qty: 30 4RF Eliquis 5 mg tablet 5 mg PO BID Qty: 180 3RF ondansetron 4 mg tablet,disintegrating 4 mg PO Q8H PRN (Reason: nausea and vomiting) Qty: 10 1RF losartan 50 mg tablet See Rx Instructions .ROUTE .COMPLEX Rx Instructions: TAKE 1 TABLET BY MOUTH ONCE DAILY FOR HYPERTENSION. atorvastatin 10 mg tablet 10 mg PO DAILY Label Comments: TAKE 1 TABLET BY MOUTH ONCE DAILY FOR HIGH CHOLESTEROL Eliquis 5 mg tablet 5 mg PO DAILY hydrochlorothiazide 25 mg tablet 12.5 mg PO DIRECTED Rx Instructions: Take on MWF only. digoxin 125 mcg (0.125 mg) tablet 125 mcg PO DAILY Referrals Follow up/Referrals: Greg Ramos MD [Primary Care Provider] - See instructions Discharge ED Provider: Montrell Barnett Adult HPI General Chief complaint: Nausea/Vomiting/Diarrhea Stated complaint: nausea Time Seen by Provider: 05/25/22 16:14 Mode of Arrival: Ambulatory Source of Information: Patient Limitations: No Limitations Description of Symptoms (Recalled from ER Triage Doc. by RN): PT STATES SHE HAS HAD INCREASED ACID REFLUX FOR 4 WEEKS, SHE HAS BEEN SEEING A DR FOR IT AND WAS PRESCRIBED PROTONIX, STATES IT HAS HELPED BUT TODAY SHE HAS HAD INCREASED NAUSEA AND DISCOMFORT History of Present Illness HPI narrative: Patient presents to the emergency department with what she describes as reflux symptoms. She states she is struggled with this for weeks. She denies any abdominal pain, fever, chills. She does describe nausea without significant vomiting. She states that she has not ate or drink anything significant in the past several days as her symptoms have become worse. She describes a few episodes of diarrhea but denies any constipation. Denies any dysuria, hematuria or frequency. States that she has seen her primary care physician about this and could not wait to see them on Friday and came into us today for relief. Related Data Home Medications Medication Instructions Recorded Confirmed aspirin 81 mg tablet,delayed 81 mg PO DAILY heart health 10/22/18 05/20/22 release (Aspir-) losartan 50 mg tablet See Rx Instructions .Route 11/27/21 05/25/22 .COMPLEX High blood pressure diltiazem HCl 120 mg capsule,24 120 mg PO DAILY HEART RATE 05/20/22 05/25/22 hr,extended release famotidine 20 mg tablet 20 mg PO DAILY 05/20/22 05/20/22 pantoprazole 40 mg tablet,delayed 40 mg PO DAILY GERD 05/20/22 05/25/22 release sucralfate 1 gram tablet 1 g PO QACHS 05/20/22 05/20/22 apixaban 5 mg tablet (Eliquis) 5 mg PO DAILY Blood thinner 05/25/22 05/25/22 atorvastatin 10 mg tablet 10 mg PO DAILY Cholesterol 05/25/22 05/25/22 digoxin 125 mcg (0.125 mg) tablet 125 mcg PO DAILY HEART RATE 05/25/22 05/25/22 hydrochlorothiazide 25 mg tablet 12.5 mg PO DIRECTED Hypertension 05/25/22 05/25/22 Previous Rx's Medication Instructions Recorded atorvastatin 10 mg tablet (Lipitor) 10 mg PO DAILY High cholesterol 12/31/21 #30 tabs apixaban 5 mg tablet (Eliquis) 5 mg PO BID #180 tabs 02/04/22 ondansetron 4 mg disintegrating 4 mg PO Q8H PRN nausea and 05/21/22 tablet vomiting #10 tabs Allergies Allergy/AdvReac Type Severity Reaction Status Date / Time tetanus and diphtheria Allergy Verified 05/25/22 15:21 toxoids codeine AdvReac Verified 05/25/22 15:21 PFSH PFSH Dis
--- NOTE | 2022-05-25 17:29 | PC.NURSE ---
dr crum at bedside
--- NOTE | 2022-05-25 17:56 | EXP.HP ---
History of Present Illness *Admission Date: 05/25/22 *Reason for visit:: Chief complaint: Reflux *History of present illness: This is a 66-year-old female that presents to [facility] emergency department with concerns of reflux for 4 weeks not improving with the medications that her primary care physician provided. Her past medical history is significant for paroxysmal atrial fibrillation, hypertension, generalized anxiety disorder and chronic gastroesophageal reflux disease. She reports that for the last 4 weeks she has identified reflux up to the back of the throat characterized as acidy. She describes associated tightness to her chest area with a sensation of fullness. She reports clear reflux secretions with no associated bile or emesis. She denies associated retrosternal chest pain, palpitations or dyspnea. She has not experienced any previous odynophagia, dysphagia, choking or difficulty with fluids. She went to see her tourist home keeper and then referred to a PCP. Her PCP placed her on twice daily PPI therapy with sucralfate therapy. She reports associated nausea relieved with prescribed Zofran from an urgent treatment center but no vomiting. She denies crescendo abdominal pain but reports epigastric burning. She denies right upper quadrant pain, jaundice or rashes. She reports associated intermittent diarrhea characterized as loose, brown loose stools over the last 2 weeks with no associated melena or hematochezia. She reports no routine NSAID use at home. She denies hematemesis. She has been limiting her oral intake secondary to her symptomatology. She reports some improvement with treatment prescribed in the ED. In the ED and electrolyte panel identified potassium 3.3, sodium 133, bicarb of 30 and BUN 26 with a creatinine of 3.3. Her LFTs were normal. She is currently receiving fluid resuscitation and potassium replacement therapy. [facility] Medical History (Updated 05/25/22 @ 18:07 by Juan Pablo Kirkland MD) Anxiety Atrial flutter GERD (gastroesophageal reflux disease) High cholesterol HTN (hypertension) Sinus bradycardia Surgical History (Updated 05/25/22 @ 18:07 by Juan Pablo Kirkland MD) History of colonoscopy History of tonsillectomy Family History Father Coronary artery disease Heart attack Grandfather Coronary artery disease Heart attack Social History Smoking Status: Never smoker alcohol intake: current substance use type: denies use current occupational status: employed Travel in the last 8 weeks: None Review of Systems Review of Systems Review of systems:: pertinent systems reviewed and negative unless documented below ENT Ears, Nose, Mouth, and Throat: Denies dysphagia and Denies odynophagia *Cardiovascular Cardiovascular: Denies dyspnea, Denies dyspnea on exertion, Denies palpitations and Denies rapid heart rate *Respiratory Respiratory: Denies cough, Denies dyspnea, Denies dyspnea on exertion and Denies hemoptysis *Gastrointestinal Gastrointestinal: Denies coffee ground emesis, Denies dysphagia, Reports heartburn, Denies hematemesis, Denies hematochezia, Reports loose stools, Denies melena, Reports nausea, Denies odynophagia and Denies vomiting Endocrine Endocrine: Denies palpitations Meds Home Medications and Allergies Home Medications Medication Instructions Recorded Confirmed Type aspirin 81 mg tablet,delayed 81 mg PO DAILY heart health 10/22/18 05/20/22 History release (Aspir-) losartan 50 mg tablet See Rx Instructions .Route 11/27/21 05/25/22 History .COMPLEX High blood pressure atorvastatin 10 mg tablet (Lipitor) 10 mg PO DAILY High cholesterol 12/31/21 05/20/22 Rx #30 tabs apixaban 5 mg tablet (Eliquis) 5 mg PO BID #180 tabs 02/04/22 05/20/22 Rx diltiazem HCl 120 mg capsule,24 120 mg PO DAILY HEART RATE 05/20/22 05/25/22 History hr,extended relea
--- NOTE | 2022-05-25 18:01 | PC.NURSE ---
called lab spoke to monty to check on status of covid test, apparently order mess up so test hadn't been ran, so resmitted the order now awaiting results before pt can go to med surg
[2022-05-25 18:06] LABS: Coronavirus 19, PCR Not Detected (NotDetected); Influenza A, PCR Not Detected (NotDetected); Influenza B, PCR Not Detected (NotDetected)
--- NOTE | 2022-05-25 18:17 | PC.NURSE ---
checked on pt no complaints and updated about pt about whats going on with covid test family at bedside
--- NOTE | 2022-05-25 18:21 | PC.NURSE ---
pt was asking results of ct scan, so relayed message to er md and he is going to speak to pt about results
--- NOTE | 2022-05-25 18:33 | PC.NURSE ---
Pt states that she cant take po K+ due to the the size of the pills, crushed the pills and mixed with applesauce. Pt could not tolerated this and spit the bite of mixed back into the cup, stating that she just cant take it.
--- NOTE | 2022-05-25 18:40 | PC.NURSE ---
Report called to Esther Lin RN
--- NOTE | 2022-05-25 18:47 | PC.NURSE ---
arrived to floor by w/c from ED
[2022-05-25 18:57] LABS: Lipase 371 U/L (23-300)
[2022-05-25 19:58] LABS: Troponin I 0.04 ng/ml (0.00-0.034)
--- NOTE | 2022-05-25 20:38 | PC.NURSE ---
1850 pt assessed. lung sounds are clear throughout, bowel sounds are active in all quads. pt denies any pain .pt is a/o x 4. skin is wdi no breakdown noted. report given to shree cisneros rn at [id number]
[2022-05-25 22:16] LABS: Microscopic, Urine URINE MICROSCOPIC (MICROSCOPIC)
[2022-05-25 22:22] LABS: Appearance,Urine CLEAR (Clear); Blood, Urine TRACE-I (Negative); Color,Urine YELLOW (Yellow); Glucose,Urine (UA) Negative (Negative); Ketones,Urine Negative (Negative); Leukocyte Esterase,Urine Negative (Negative); Nitrate,Urine Negative (Negative); PH,Urine 5.5 (5.0-8.5); Protein,Urine Negative (Negative); Urobilinogen,Urine 0.2 EU/dl (0.2)
[2022-05-25 22:22] LABS: Troponin I 0.04 ng/ml (0.00-0.034)
[2022-05-25 22:24] LABS: Bilirubin,Urine 1+ (Negative)
[2022-05-25 22:30] LABS: Bacteria,Urine Trace /lpf; RBC,Urine Occasional #/hpf (0-3); WBC,Urine Occasional #/hpf (0-3)
[2022-05-25 22:33] LABS: Benzodiazepines Screen,Urine Negative ng/ml (<200)
[2022-05-25 22:34] LABS: Amphetamine/Metha Screen,Urine Negative ng/ml (<1000); Barbiturates Screen,Urine Negative ng/ml (<200)
[2022-05-25 22:35] LABS: Cannabinoid Screen,Urine Negative ng/ml (<50)
[2022-05-25 22:36] LABS: Cocaine Screen,Urine Negative ng/ml (<300); Methadone Screen,Urine Negative ng/ml (<300)
[2022-05-25 22:37] LABS: Opiate Screen,Urine Negative ng/ml (<300); Phencyclidine Screen,Urine Negative ng/ml (<25)
[2022-05-26] VITALS (9 sets, daily range): BP systolic 126–143; BP diastolic 45–70; PULSE 50–92; RESP 16–18; TEMP 36.7–36.9; O2SAT 97–100; BMI 23.3
[2022-05-26 01:04] LABS: Troponin I 0.05 ng/ml (0.00-0.034)
--- NOTE | 2022-05-26 06:59 | PC.NURSE ---
Pt has had multiple c/o of nausea. PRN Zofran and one time order Compazine administered. Pt states favorable results. Call light within reach.
[2022-05-26 07:57] LABS: Anion Gap 6.3 mEq/L (5-15); Blood Urea Nitrogen 27 mg/dl (7-17); Calcium 7.6 mg/dl (8.4-10.2); Carbon Dioxide 26 mmol/L (22.0-30.0); Chloride 103 mmol/L (98-107); Creatinine Clearance Estimated 14 mL/min (50-200); Estimated Glomerular Filt Rate 13 ml/min (>60); GFR (African American) 15 ML/MIN (>60); Glucose 84 mg/dl (74-100); Magnesium 2.1 mg/dl (1.6-2.3); Phosphorous 3.5 mg/dl (2.5-4.5); Potassium 3.3 mmoL/L (3.5-5.1); Sodium 132 mmol/L (136-145)
[2022-05-26 08:00] LABS: Basophils # 0.1 K/mm3 (0-0.2); Basophils % 0.7 % (0.1-2.0); Eosinophils # 0.2 K/mm3 (0.0-0.4); Eosinophils % 2.2 % (0.1-12.0); Hematocrit 30.4 % (37.0-47.0); Lymphocytes # 1.3 K/mm3 (0.7-4.5); Lymphocytes % 15.3 % (10-50); Mean Corpuscular HGB Conc 33.9 g/dL (31.8-35.4); Mean Corpuscular Hemoglobin 30.1 pg (27.0-31.2); Mean Corpuscular Volume 88.7 fl (81-99); Mean Platelet Volume 7.7 fl (7.4-10.4); Monocytes # 0.5 K/mm3 (0.1-1.0); Monocytes % 6.2 % (1.7-9.3); Neutrophils # 6.4 K/mm3 (1.8-7.8); Neutrophils % 75.6 % (37.0-80.0); Platelet Count 340 K/mm3 (142-424); Red Blood Count 3.43 M/mm3 (4.20-5.40); Red Cell Distribution Width 12.4 % (11.5-17.5); White Blood Count 8.5 K/mm3 (4.8-10.8)
[2022-05-26 09:43] LABS: Hemoglobin 10.4 g/dL (12.2-16.2)
--- NOTE | 2022-05-26 10:04 | EXP.PN ---
Subjective *Date: 05/26/22 *Time: 10:04 Interval history: Date of service May 26, 2022 The patient reports no acute events overnight. She reports no further diarrhea but describes ongoing nausea. She reports the Zofran helps. Nursing staff report that she remains afebrile with stable vital signs and saturating appropriately on room air. We have reviewed and discussed her lab and imaging results and I have personally interpreted as follows: A CBC with an improved leukocytoses white blood cell count 8.5, hemoglobin 10.4, hematocrit 30.4, platelet count 340, sodium 132, potassium 3.3, chloride 103, CO2 26, BUN 27, creatinine 3.6, glucose trend under 100. Her troponin x3 is plateaued at 0.4 and her lipase was elevated. Her digoxin level is elevated and her medication is being held. Her urine drug screen is negative. CT of the abdomen identified a liver 3 cm hypoattenuating lesion. Pancreas fatty atrophic with infiltrative changes and left lower pole kidney with 4 mm nonobstructing stone. Her urine culture is pending. Once again, she recalls no prior history of renal disease and denies NSAID overuse [id number]. Exam Data for Last 24 hours Vital signs and Labs for Last 24 Hours: Temp Pulse Resp BP Pulse Ox 98.0 F 55 L 18 143/49 H 97 05/26/22 07:27 05/26/22 07:27 05/26/22 07:27 05/26/22 07:27 05/26/22 07:27 Laboratory Results - last 24 hr 05/25/22 15:21: WBC 12.9 H, RBC 4.29, Hgb 12.8, Hct 37.9, MCV 88.3, MCH 29.9, MCHC 33.9, RDW 12.3, Plt Count 455 H, MPV 8.5, Neut % (Auto) 75.4, Lymph % (Auto) 14.5, Moca % (Auto) 7.5, Eos % (Auto) 1.7, Baso % (Auto) 0.9, Neut # (Auto) 9.7 H, Lymph # (Auto) 1.9, Moca # (Auto) 1.0, Eos # (Auto) 0.2, Baso # (Auto) 0.1 05/25/22 15:21: Sodium 133 L, Potassium 3.3 L, Chloride 94 L, Carbon Dioxide 30, Anion Gap 12.3, BUN 26 H, Creatinine 3.30 H, Estimated Creat Clear 16, Estimated GFR 14 L*, Est GFR ( Amer) 17 L*, Glucose 101 H, Calcium 8.8, Total Bilirubin 0.8, AST 30, ALT 26, Alkaline Phosphatase 118, Troponin I 0.04 H, Total Protein 7.4, Albumin 4.3, Globulin 3.1, Albumin/Globulin Ratio 1.4 05/25/22 15:21: Lipase 371 H 05/25/22 15:21: Digoxin 2.70 H* 05/25/22 16:40: SARS-CoV-2 (PCR) Not detected, Influenza A Untype (PCR) Not detected, Influenza Type B (PCR) Not detected 05/25/22 19:03: Troponin I 0.04 H 05/25/22 21:15: Troponin I 0.04 H 05/25/22 22:13: Urine Opiates Screen Negative, Urine Methadone Screen Negative, Ur Barbituates Screen Negative, Ur Phencyclidine Scrn Negative, Ur Amphetamines Screen Negative, U Benzodiazepines Scrn Negative, Urine Cocaine Screen Negative, U Marijuana (THC) Screen Negative 05/25/22 22:13: Urine Color Yellow, Urine Appearance Clear, Urine pH 5.5, Ur Specific [place] 1.010, Urine Protein Negative, Urine Glucose (UA) Negative, Urine Ketones Negative, Urine Blood Trace-i, Urine Nitrate Negative, Urine Bilirubin 1+ A, Urine Urobilinogen 0.2, Ur Leukocyte Esterase Negative, Urine RBC Occasional, Urine WBC Occasional, Ur Squamous Epith Cells 3-5, Urine Bacteria Trace 05/26/22 00:35: Troponin I 0.05 H 05/26/22 07:02: WBC 8.5 D, RBC 3.43 L, Hgb 10.4 L D, Hct 30.4 L, MCV 88.7, MCH 30.1, MCHC 33.9, RDW 12.4, Plt Count 340 D, MPV 7.7, Neut % (Auto) 75.6, Lymph % (Auto) 15.3, Moca % (Auto) 6.2, Eos % (Auto) 2.2, Baso % (Auto) 0.7, Neut # (Auto) 6.4, Lymph # (Auto) 1.3, Moca # (Auto) 0.5, Eos # (Auto) 0.2, Baso # (Auto) 0.1 05/26/22 07:02: Sodium 132 L, Potassium 3.3 L, Chloride 103, Carbon Dioxide 26, Anion Gap 6.3, BUN 27 H, Creatinine 3.60 H, Estimated Creat Clear 14, Estimated GFR 13 L*, Est GFR ( Amer) 15 L*, Glucose 84, Calcium 7.6 L, Phosphorus 3.5, Magnesium 2.1 I & O for Last 24 hours: Intake & Output 05/23/22 05/24/22 05/25/22 05/26/22 23:59 23:59 23:59 23:59 Intake Total 0 / 0 Output Total 100 / 100 0 / 0 Balance -100 / -100 0 / 0 Weight 60 kg 59.874 kg Constitutional Constitutional: no acute distress, average body habitus and coope
--- NOTE | 2022-05-26 17:38 | PC.NURSE ---
no complaints this shift. 2 runs of iv potassium and pt tolerated well. ambulates independently to the restroom.
[2022-05-27] VITALS: BP 137/61; PULSE 59; RESP 16; TEMP 37.1; O2SAT 95
[2022-05-27 03:26] VITALS: PULSE 60
--- NOTE | 2022-05-27 03:57 | PC.NURSE ---
Pt c/o GERD?nausea 1x t/o shift. PRN medication administered. Ambulating to BR with standby assist. Call light within reach.
[2022-05-27 04:00] VITALS: BP 117/44; PULSE 40; PULSE 50; RESP 16; TEMP 36.9; O2SAT 98; BMI 25.0
[2022-05-27 07:35] LABS: Anion Gap 9.8 mEq/L (5-15); Blood Urea Nitrogen 25 mg/dl (7-17); Calcium 7.9 mg/dl (8.4-10.2); Carbon Dioxide 23 mmol/L (22.0-30.0); Chloride 109 mmol/L (98-107); Creatinine Clearance Estimated 22 mL/min (50-200); Estimated Glomerular Filt Rate 19 ml/min (>60); GFR (African American) 23 ML/MIN (>60); Glucose 63 mg/dl (74-100); Potassium 3.8 mmoL/L (3.5-5.1); Sodium 138 mmol/L (136-145)
[2022-05-27 07:45] LABS: Lipase 410 U/L (23-300)
[2022-05-27 08:00] VITALS: BP 139/62; PULSE 49; PULSE 50; PULSE 53; RESP 17; TEMP 36.7; O2SAT 99
[2022-05-27 08:29] VITALS: PULSE 49
--- NOTE | 2022-05-27 10:33 | EXP.CARD.CON ---
History of Present Illness History of Present Illness Consult date: 05/27/22 Requesting physician: Juan Pablo Kirkland Chief complaint: Chronic gastroesophageal reflux disease, acute kidney injury History of present illness: *Admission Date: 05/25/22 *Reason for visit:: Chief complaint: Reflux *History of present illness: This is a 66-year-old female that presents to [facility] emergency department with concerns of reflux for 4 weeks not improving with the medications that her primary care physician provided.? Her past medical history is significant for paroxysmal atrial fibrillation, hypertension, generalized anxiety disorder and chronic gastroesophageal reflux disease.? She reports that for the last 4 weeks she has identified reflux up to the back of the throat characterized as acidy. ? She describes associated tightness to her chest area with a sensation of fullness. ? She reports clear reflux secretions with no associated bile or emesis.? She denies associated retrosternal chest pain, palpitations or dyspnea.? She has not experienced any previous odynophagia, dysphagia, choking or difficulty with fluids.? She went to see her electrical integrator and then referred to a PCP.? Her PCP placed her on twice daily PPI therapy with sucralfate therapy.? She reports associated nausea relieved with prescribed Zofran from an urgent treatment center but no vomiting.? She denies crescendo abdominal pain but reports epigastric burning.? She denies right upper quadrant pain, jaundice or rashes.? She reports associated intermittent diarrhea characterized as loose, brown loose stools over the last 2 weeks with no associated melena or hematochezia.? She reports no routine NSAID use at home.? She denies hematemesis.? She has been limiting her oral intake secondary to her symptomatology.? She reports some improvement with treatment prescribed in the ED.? In the ED and electrolyte panel identified potassium 3.3, sodium 133, bicarb of 30 and BUN 26 with a creatinine of 3.3.? Her LFTs were normal.? She is currently receiving fluid resuscitation and potassium replacement therapy. Patient has been in the hospital since 05/25/2022 and this morning reports is feeling great and would like to go home. Cardiology was asked to evaluate for elevated troponin. During hospital stay initial troponin was 0.04 and trended up to 0.05 in the setting of acute kidney injury. EKG shows sinus bradycardia with a rate of [address]-T wave abnormalities noted. Patient reports she knows it is not her heart, that the symptoms are similar to her previous GERD symptoms. [facility] Disclaimer: The information contained in this section may have been updated after the patient was seen, as this information can be updated by other users. Medical History (Updated 05/25/22 @ 18:44 by Suyapa Castaneda, ANNA) Anxiety Atrial flutter GERD (gastroesophageal reflux disease) High cholesterol HTN (hypertension) Sinus bradycardia Surgical History (Updated 05/25/22 @ 18:07 by Juan Pablo Kirkland MD) History of colonoscopy History of tonsillectomy Family History Father Coronary artery disease Heart attack Grandfather Coronary artery disease Heart attack Social History (Updated 05/25/22 @ 20:24 by Olinda Londono RN) Smoking Status: Never smoker alcohol intake: current substance use type: denies use current occupational status: employed Travel in the last 8 weeks: None Review of Systems Review of Systems Review of systems:: pertinent systems reviewed and negative unless documented below *Gastrointestinal Gastrointestinal: Reports belching, Reports bloating, Reports dyspepsia and Reports heartburn Exam Data for Last 24 hours Vital signs and Labs for Last 24 Hours: Temp Pulse Resp BP Pulse Ox 98.1 F 49 L 17 139/62 99 05/27/22 08:00 05/27/22 08:29 05/27/22 08:00 05/27/22 08:00 05/27/22 08:00 Laborat
--- NOTE | 2022-05-27 11:04 | DIET.NUTRFU ---
Patient plans to discharge today, she has been tolerating cardiac diet. Declined education, she reports she is well educated
[2022-05-27 11:15] VITALS: BP 133/59; PULSE 54; RESP 18; TEMP 36.6; O2SAT 99
--- NOTE | 2022-05-27 12:04 | EXP.DC.SUM ---
General Admission date:: 05/25/22 Discharge date: 05/27/22 HPI HPI HPI: This is a 66-year-old female that presents to [facility] emergency department with concerns of reflux for 4 weeks not improving with the medications that her primary care physician provided. Her past medical history is significant for paroxysmal atrial fibrillation, hypertension, generalized anxiety disorder and chronic gastroesophageal reflux disease. She reports that for the last 4 weeks she has identified reflux up to the back of the throat characterized as acidy. She describes associated tightness to her chest area with a sensation of fullness. She reports clear reflux secretions with no associated bile or emesis. She denies associated retrosternal chest pain, palpitations or dyspnea. She has not experienced any previous odynophagia, dysphagia, choking or difficulty with fluids. She went to see her bulldozer press operator and then referred to a PCP. Her PCP placed her on twice daily PPI therapy with sucralfate therapy. She reports associated nausea relieved with prescribed Zofran from an urgent treatment center but no vomiting. She denies crescendo abdominal pain but reports epigastric burning. She denies right upper quadrant pain, jaundice or rashes. She reports associated intermittent diarrhea characterized as loose, brown loose stools over the last 2 weeks with no associated melena or hematochezia. She reports no routine NSAID use at home. She denies hematemesis. She has been limiting her oral intake secondary to her symptomatology. She reports some improvement with treatment prescribed in the ED. In the ED and electrolyte panel identified potassium 3.3, sodium 133, bicarb of 30 and BUN 26 with a creatinine of 3.3. Her LFTs were normal. She is currently receiving fluid resuscitation and potassium replacement therapy. Hospital Course Hospital Course Hospital Course: The patient was admitted to the medical unit with IV fluid resuscitation with bicarb supplementation. Her laboratory studies and inflammatory markers were trended. Her creatinine identified an improvement down to 2.5 on discharge. Her digoxin level was elevated and held secondary to her acute kidney injury. She was maintained on PPI therapy and her diet was slowly advanced to tolerance. Cardiology evaluated the patient and recommended ongoing outpatient evaluations. She declined inpatient cardiac catheterization. She identified improvement and requested that she be discharged home. We discussed her elevated lipase, findings on CT and improved creatinine. She understands the importance of holding her digoxin therapy, ARB therapy and thiazide therapy until follow-up blood work is complete. We have recommended that she see her PCP on May 30 for repeat labs to include a comprehensive metabolic profile, magnesium, creatinine kinase, lipase and digoxin level. She has an appointment to see a jogger operator on June 03 and a roller skater on June 20 to discuss her findings on CT including liver and pancreas changes. She will continue to hold her losartan and hydrochlorothiazide with routine blood pressure monitoring. I spent 35 minutes in ailc-vy-dfam time with the patient and nursing staff concerning the discharge process. We discussed the admitting diagnoses and hospital course. We discussed identified improvement and the patient's desire to be discharged. We reviewed inpatient studies and imaging. The patient voiced understanding on the importance of follow-up with her primary care provider and specialist(s). The patient plans to be compliant with the medication regimen prescribed and follow-up appointments. She understands that she can return to the emergency department with any sudden changes or concerns. Exam Data for Last 24 hours Vital signs and Labs for Last 24 Hours: Temp Pulse Resp BP Pulse Ox 97.9 F 54 L 18 133/59 L 99 05/27/22 11:15 05/27/22 11:15 05/27/22 11
--- NOTE | 2022-05-27 12:10 | HMH.PHAINT1 ---
Pharmacy Intervention Comments: Discussed discharge medications with patient. Patient verbalized understanding and had no questions at this time.
--- NOTE | 2022-05-29 14:30 | CARE MANAGER ---
Spoke with patient for post-discharge phone interview, no issues noted. Patient is aware of follow-up appointments and has her medications.
== END 2022-05-27 12:36 | disposition home or self-care (01) ==
LOC: ER 15:19 → 2ND 17:15
PROVIDERS: Admitting Provider Family Medicine; Emergency Provider Emergency Medicine; PCP Family Medicine; Visit Provider Family Medicine
DX: N17.9 Acute kidney failure, unspecified (principal); I48.0 Paroxysmal atrial fibrillation; K21.9 Gastro-esophageal reflux disease without esophagitis; I10 Essential (primary) hypertension; E78.2 Mixed hyperlipidemia; K85.90 Acute pancreatitis without necrosis or infection, unspecified; K76.9 Liver disease, unspecified; N20.0 Calculus of kidney; Z79.899 Other long term (current) drug therapy; Z79.01 Long term (current) use of anticoagulants; Z82.49 Family history of ischemic heart disease and other diseases of the circulatory system; D68.2 Hereditary deficiency of other clotting factors; Z20.822 Contact with and (suspected) exposure to COVID-19
CPT/HCPCS: G0378; 36415; 74176; 80048; 80053; 80162; 80305; 81001; 83690; 83735; 84100; 84484; 85025; 87086; 87088; 87186; 93005; 99285; C9803; J2405; U0003; U0005

== ENCOUNTER 2022-06-06 21:00 | Emergency (ER) | payer MEDICARE, SELFPAY ==
[2022-06-06 21:01] VITALS: BP 143/72; PULSE 89; RESP 17; TEMP 36.6; O2SAT 99; BMI 23.9
--- NOTE | 2022-06-06 21:34 | ECG_ITS ---
APPROVED REPORT Exam: Resting ECG HR:81 bpm ECG Measurements Heart Rate 81 AXES QRSd 92 QRS 51 QT 350 T -51 QTc [address] DEVIATION AND MODERATE T-WAVE ABNORMALITY, CONSIDER INFERIOR ISCHEMIA [-0.1+ mV T-WAVE IN II/aVF] ABNORMAL ECG UNCONFIRMED REPORT Electronically signed by : Marcos Fisher MD 06/07/2022 17:19:22
[2022-06-06 22:05] VITALS: BP 0/0; PULSE 0; RESP 0; TEMP -17.7; TEMP 0
--- NOTE | 2022-06-06 22:06 | PC.NURSE ---
edi spoke with pt and pt state she just wanted a EKG
== END 2022-06-06 22:06 | disposition left against medical advice (07) ==
LOC: ER 21:04
PROVIDERS: Emergency Provider Emergency Medicine; PCP Family Medicine
DX: Z86.79 Personal history of other diseases of the circulatory system (principal)
CPT/HCPCS: 93005; 99283

== ENCOUNTER → 2023-01-14 09:41 | Outpatient (CLI) | payer MEDICARE, SELFPAY ==
[2023-01-14 10:27] LABS: Basophils % 0.5 % (0.1-2.0); Eosinophils % 0.2 % (0.1-12.0); Hematocrit 36.5 % (37.0-47.0); Hemoglobin 12.7 g/dL (12.2-16.2); Lymphocytes # 1.8 K/mm3 (0.7-4.5); Lymphocytes % 20.8 % (10-50); Mean Corpuscular HGB Conc 34.7 g/dL (31.8-35.4); Mean Corpuscular Hemoglobin 32.7 pg (27.0-31.2); Mean Corpuscular Volume 94.4 fl (81-99); Mean Platelet Volume 7.6 fl (7.4-10.4); Monocytes # 0.5 K/mm3 (0.1-1.0); Monocytes % 5.4 % (1.7-9.3); Neutrophils # 6.3 K/mm3 (1.8-7.8); Neutrophils % 73.1 % (37.0-80.0); Platelet Count 342 K/mm3 (142-424); Red Blood Count 3.87 M/mm3 (4.20-5.40); Red Cell Distribution Width 12.7 % (11.5-17.5); White Blood Count 8.6 K/mm3 (4.8-10.8)
[2023-01-14 11:23] LABS: Alanine Aminotransferase 39 U/L (12-78); Albumin Level 4.8 g/dl (3.5-5.0); Alkaline Phosphatase 84 U/L (38-126); Anion Gap 14.2 mEq/L (5-15); Aspartate Amino Transferase 37 U/L (14-36); Bilirubin,Direct 0.2 mg/dl (0.0-0.4); Bilirubin,Indirect 0.3 mg/dL (0.0-0.9); Bilirubin,Total 0.5 mg/dl (0.2-1.3); Bilirubin,Unconjugated 0.3 mg/dL (0.0-1.1); Blood Urea Nitrogen 13 mg/dl (7-17); Calcium 9.7 mg/dl (8.4-10.2); Carbon Dioxide 25 mmol/L (22.0-30.0); Chloride 95 mmol/L (98-107); Cholesterol 215 mg/dl (140-200); Estimated Glomerular Filt Rate 55 ml/min (>60); GFR (African American) 67 ML/MIN (>60); Glucose 96 mg/dl (74-100); Potassium 4.2 mmoL/L (3.5-5.1); Sodium 130 mmol/L (136-145); Total Protein,Serum 7.4 g/dl (6.3-8.2); Triglycerides 136 mg/dl (30-150); VLDL Cholesterol 27 mg/dL (0-40)
[2023-01-14 11:31] LABS: Chol/HDL Ratio 1.7 (1-3.5); HDL Cholesterol 123 mg/dl (40-60)
[2023-01-14 11:34] LABS: Direct LDL Cholesterol 72.89 mg/dL (100-129)
[2023-01-14 11:39] LABS: Free T4 (Free Thyroxine) 0.93 ng/dl (0.78-2.19)
[2023-01-14 11:54] LABS: Thyroid Stimulating Hormone 1.82 uIU/mL (0.465-4.68)
== END ==
PROVIDERS: PCP Family Medicine; Visit Provider Physician Assistant
DX: R00.1 Bradycardia, unspecified; I48.0 Paroxysmal atrial fibrillation; E78.5 Hyperlipidemia, unspecified; Z79.899 Other long term (current) drug therapy; I11.9 Hypertensive heart disease without heart failure
CPT/HCPCS: 36415; 80048; 80061; 80076; 80162; 83735; 84439; 84443; 85025

== ENCOUNTER → 2023-01-21 08:32 | Outpatient (CLI) | payer MEDICARE, SELFPAY ==
[2023-01-21 10:00] LABS: Anion Gap 11.6 mEq/L (5-15); Blood Urea Nitrogen 13 mg/dl (7-17); Calcium 9.6 mg/dl (8.4-10.2); Carbon Dioxide 27 mmol/L (22.0-30.0); Chloride 101 mmol/L (98-107); Estimated Glomerular Filt Rate 55 ml/min (>60); GFR (African American) 67 ML/MIN (>60); Glucose 91 mg/dl (74-100); Potassium 4.6 mmoL/L (3.5-5.1); Sodium 135 mmol/L (136-145)
== END ==
PROVIDERS: PCP Family Medicine; Visit Provider Physician Assistant
DX: E87.1 Hypo-osmolality and hyponatremia (principal)
CPT/HCPCS: 36415; 80048

== ENCOUNTER → 2023-02-18 09:12 | Outpatient (CLI) | payer MEDICARE, SELFPAY ==
--- NOTE | 2023-02-18 09:15 | CA_ITS ---
APPROVED REPORT EXAM: Comprehensive 2D, Doppler, and color-flow Echocardiogram Digital Watch Assembler: Pattie Lyle CRT Ht: 5 ft 3 in Wt: 136lbs BSA: 1.64 BP: 159/55 mmHg Indications: Atrial Flutter, Cardiomegaly, bradycardia 2D Dimensions LVOT 1.70 cm (M/F) 1.5-2.5 LA Volume 81.30 mL LA Volume Index 48.40 mL/m2 (M/F) 16-34 M-Mode Dimensions RVDd 3.13 cm (0.9-2.6) LA Diam 4.30 cm (1.9-4.0) LVDd 4.41 cm (3.5-5.7) Ao Diam 4.16 cm (2.0-3.7) LVDs 2.69 cm (3.5-5.7) IVSd 1.60 cm (0.6-1.1) PWd 1.10 cm (0.6-1.1) EF (Teich) 69.60% FS 39.00% EDV (Teich) 88.20 mL TAPSE 2.44 (<1.7) ESV (Teich) 26.80 mL LV Diastology MED E' 7.30 (< 7 cm/sec) MED A' 9.10 cm/s LAT E' 8.60 (<10 cm/sec) LAT A' 11.60 cm/s Aortic Valve AI PHT 405.00 ms AO Peak GR. 14.10 mmHg Pulmonary Valve PV Peak Velocity 90.00 (50-150 cm/s) Tricuspid Valve TR P. Velocity 217.00 cm/s RAP Estimate 10.00 mmHg RVSP 28.80 mmHg Left Ventricle The left ventricle is normal size. The left ventricular systolic function is normal. The left ventricular ejection fraction is within the normal range. There is normal left ventricular wall thickness. There is normal LV segmental wall motion. The left ventricular diastolic function is normal. LVEF is 60%. Right Ventricle The right ventricle is normal size. The right ventricular systolic function is normal. Atria The left atrium size is normal. The right atrium size is normal. Aortic Valve The aortic valve opens well. There is no aortic valvular stenosis. No aortic regurgitation is present. Mitral Valve The mitral valve is normal in structure. No evidence of mitral valve stenosis. There is no mitral valve regurgitation noted. Tricuspid Valve The tricuspid valve leaflets are thin and pliable. Trace tricuspid regurgitation. There is insufficient TR jet to estimate RVSP. Pulmonic Valve The pulmonary valve is normal in structure. Trace pulmonic regurgitation. Great Vessels The aortic root is normal in size. The ascending aorta is normal in size. IVC is normal in size and collapses >50% with inspiration. Pericardium There is no pericardial effusion. Other Information Study Quality: Fair Conclusion Normal biventricular systolic function. No significant valvular stenosis or regurgitation. Electronically signed by : Cady Portillo MD 02/23/2023 20:26:03
== END ==
PROVIDERS: PCP Family Medicine; Visit Provider Physician Assistant
DX: E78.5 Hyperlipidemia, unspecified (principal); I10 Essential (primary) hypertension; I48.0 Paroxysmal atrial fibrillation; I51.7 Cardiomegaly; R00.1 Bradycardia, unspecified; Z51.81 Encounter for therapeutic drug level monitoring; Z79.899 Other long term (current) drug therapy; R94.31 Abnormal electrocardiogram [ECG] [EKG]
CPT/HCPCS: 93306

== ENCOUNTER 2024-05-02 02:04 | Emergency (ER) | payer MEDICARE, SELFPAY ==
[2024-05-02 02:05] VITALS: BP 174/144; PULSE 91; RESP 16; TEMP 36.6; O2SAT 98; BMI 23.3
--- NOTE | 2024-05-02 02:11 | ECG_ITS ---
APPROVED REPORT Exam: Resting ECG HR:153 bpm ECG Measurements Heart Rate 153 AXES QRSd 85 QRS 58 QT 282 T 66 QTc 368 Conclusion ATRIAL FIBRILLATION WITH RAPID VENTRICULAR RESPONSE WITH ABERRANT CONDUCTION OR VENTRICULAR PREMATURE COMPLEXES NONSPECIFIC ST & T-WAVE ABNORMALITY CRITICAL TEST RESULT UNCONFIRMED REPORT Electronically signed by : HIWOT LOPEZ, 05/02/2024 06:38:36
--- NOTE | 2024-05-02 02:13 | HMH.EDGENADL ---
Discharge Plan Disposition Patient Disposition: Home, Self-Care Condition: Good Prescriptions Prescriptions: No Action Eliquis 5 mg tablet 5 mg PO BID Qty: 60 5RF azelastine 205.5 mcg (0.15 %) spray,non-aerosol 1 spray intranasal BID Qty: 30 2RF Rx Instructions: administer into each nostril atorvastatin 10 mg tablet 10 mg PO DAILY Qty: 90 3RF losartan 25 mg tablet See Rx Instructions .ROUTE .COMPLEX Qty: 30 3RF Dose Instruction: Take 1 tablet by mouth once daily Rx Instructions: Take 1 tablet by mouth once daily prednisone 50 mg tablet 50 mg PO DAILY Qty: 7 0RF diltiazem HCl 180 mg capsule,extended release 24hr 180 mg PO DAILY Qty: 90 1RF amoxicillin 500 mg tablet 500 mg PO TID Qty: 30 0RF pseudoephedrine HCl 120 mg tablet extended release 120 mg PO Q12H Qty: 20 1RF famotidine 40 mg tablet See Rx Instructions .ROUTE .COMPLEX Qty: 90 0RF Dose Instruction: Take 1 tablet by mouth once daily Rx Instructions: Take 1 tablet by mouth once daily digoxin 125 mcg (0.125 mg) tablet 125 mcg PO DAILY Qty: 30 3RF Activity Restrictions/Add. Instructions Additional Instructions/Restrictions: Please follow-up with your primary care provider. Please return to the emergency department if you develop any new or worsening symptoms or become concerned for your health. Clinical Impressions Clinical Impression: Atrial fibrillation with rapid ventricular response Print Language Print Language: Belgian Discharge ED Provider: Ludin Ulloa Adult HPI General Chief complaint: Arrhythmia/Palpitations Stated complaint: Palpatations Time Seen by Provider: 05/02/24 02:05 Mode of Arrival: Ambulatory Source of Information: Patient Limitations: No Limitations Description of Symptoms (Recalled from ER Triage Doc. by RN): Patient reports she feels like her heart is racing. States it happens when she is sitting down. States she has had similiar episodes in the past and that she is on medication to regulate it. History of Present Illness HPI narrative: 68-year-old female with history of paroxysmal A-fib on Xarelto, digoxin, diltiazem presents for palpitations. She reports that started a couple of hours ago. She has been taking all of her medications as prescribed. She reports that she intermittently goes into A-fib, approximately once a year. She denies any chest pain shortness of breath or any other symptoms at this time. Related Data Previous Rx's ?Medication ?Instructions ?Recorded azelastine 205.5 mcg (0.15 %) 1 spray intranasal BID #30 mL 12/10/22 nasal spray atorvastatin 10 mg tablet 10 mg PO DAILY Cholesterol #90 tabs 06/09/23 apixaban 5 mg tablet (Eliquis) 5 mg PO BID Blood thinner/atrial 07/22/23 fib #60 tabs losartan 25 mg tablet See Rx Instructions .Route 01/28/24 .COMPLEX #30 tabs prednisone 50 mg tablet 50 mg PO DAILY #7 tabs 01/30/24 diltiazem HCl 180 mg 180 mg PO DAILY #90 caps 03/15/24 capsule,extended release 24 hr amoxicillin 500 mg tablet 500 mg PO TID #30 tabs 03/30/24 pseudoephedrine HCl 120 mg 120 mg PO Q12H #20 tabs 03/30/24 tablet,extended release digoxin 125 mcg (0.125 mg) tablet 125 mcg PO DAILY #30 tabs 04/05/24 famotidine 40 mg tablet See Rx Instructions .Route 04/05/24 .COMPLEX #90 tabs Allergies Allergy/AdvReac Type Severity Reaction Status Date / Time tetanus and diphtheria Allergy Verified 12/23/23 08:45 toxoids codeine AdvReac Verified 12/23/23 08:45 [facility] Disclaimer: The information contained in this section may have been updated after the patient was seen, as this information can be updated by other users. Medical History Atrial enlargement, left GERD (gastroesophageal reflux disease) Anxiety High cholesterol Sinus bradycardia HTN (hypertension) Atrial flutter Surgical History History of colonoscopy History of tonsillectomy Family History Father Coronary artery disease Heart attack Grandfather Coronary artery disease Heart attack Social History Smoking Status: Never smoker alcohol intake: current alcohol intake frequency: a few times a month substance use type: denies use current occupational status: employed Travel in the last 8 weeks: None Other Medical History Have you received the Flu Vaccine for this season: No Have you received the Pneumonia Vaccine: No ROS Obtained: Yes All systems reviewed & no additional complaints except as documented Physical Exam General General appearance: alert and in no apparent distress Head Head exam: atraumatic and normocephalic Eye Eye exam: Present normal appearance, PERRL and EOMI ENT ENT exam: Present normal oropharynx and normal external ear exam Neck Neck exam: Present normal inspection and full ROM Chest Chest inspection: Present normal inspection and symmetric chest wall rise; Absent tenderness Respiratory Respiratory exam: Present normal lung sounds bilaterally; Absent respiratory distress Cardiovascular Cardiovascular exam: Present tachycardia and irregular rhythm Abdominal Exam Abdominal exam: Present soft; Absent distention, tenderness or guarding Extremities Exam Extremities exam: Present normal inspection; Absent edema or joint swelling Back Exam Back exam: Present normal inspection; Absent tenderness Neurological Exam Neurological exam: Present alert and oriented X3; Absent motor sensory deficit Psychiatric Psychiatric exam: Present normal affect and normal mood Skin Skin exam: Present warm, dry and normal color Lymphatic Lymphatic Findings: no adenopathy Medical Decision Making Medical Records Medical records reviewed: Yes I reviewed the patient's medical records. Screening: Per USPSTF and CDC recommendations, given the prevalence of disease in our region, it is our hospital?s policy to screen for HIV and viral Hepatitis for all patients aged 18 and over and those with ongoing risk factors. Alejo Inquiry Pt receiving controlled substance: No Alejo was queried for this patient: No Vital Signs: 05/02/24 02:05 05/02/24 02:30 05/02/24 02:49 Temperature 97.9 F 97.9 F Temperature Source Oral Oral Pulse Rate 61 55 L Pulse Rate [Right Radial] 91 H Respiratory Rate 16 15 16 Blood Pressure 137/68 137/68 Blood Pressure [Right Arm] 174/144 H Blood Pressure Mean [Right Arm] 154 Blood Pressure Source Automatic Cuff Blood Pressure Source [Right Arm] Automatic Cuff Blood Pressure Position Supine Blood Pressure Position [Right Arm] Supine 02 Sat by Pulse Oximetry 98 98 Oxygen Delivery Method Room Air Room Air Lab Data Lab results reviewed: Yes I reviewed the patient's lab results. Lab Results 05/02/24 02:09: WBC 13.2 H, RBC 4.84, Hgb 14.6, Hct 41.8, MCV 86.4, MCH 30.2, MCHC 34.9, RDW 11.9, Plt Count 393, MPV 8.2, Neut % (Auto) 64.1, Lymph % (Auto) 23.5, [place] % (Auto) 8.4, Eos % (Auto) 2.4, Baso % (Auto) 0.6, Neut # (Auto) 8.4 H, Lymph # (Auto) 3.1, [place] # (Auto) 1.1 H, Eos # (Auto) 0.3, Baso # (Auto) 0.1, Sodium 138, Potassium 3.6, Chloride 101, Carbon Dioxide 26, Anion Gap 14.6, BUN 10, Creatinine 1.00, Estimated Creat Clear 50, Estimated GFR 55 L, Est GFR ( Amer) 67, Glucose 112 H, Calcium 10.2, Phosphorus 4.5, Magnesium 1.9, Total Bilirubin 0.5, AST 38 H, ALT 34, Alkaline Phosphatase 119, Troponin I < 0.01, Total Protein 8.6 H, Albumin 5.3 H, Globulin 3.3 H, Albumin/Globulin Ratio 1.6, Thyroxine (T4) 7.2 05/02/24 02:09 05/02/24 02:09 Orders (Tests/Meds): ED MEDICATIONS Discontinued Medications Generic Name Dose Route Start Last Admin Trade Name Freq PRN Reason Stop Dose Admin Diltiazem HCl 20 mg 05/02/24 02:10 05/02/24 02:16 Diltiazem 25mg/5ml Vial IV 05/02/24 02:11 20 mg ONCE ONE Administration ORDERS Category Date Time Status CBC w/Auto Diff [Complete Blood Count Auto Diff] Stat Lab 05/02/24 02:09 Completed CMP [Comprehensive Metabolic Panel] Stat Lab 05/02/24 02:09 Results HIV Combo Stat Lab 05/02/24 02:09 Received Hepatitis C Ab Qual. W/ RFX Stat Lab 05/02/24 02:09 Received Magnesium Stat Lab 05/02/24 02:09 Results Phosphorous Stat Lab 05/02/24 02:09 Results T4 (Thyroxine) Stat Lab 05/02/24 02:09 Results TSH [Thyroid Stimulating Hormone] Stat Lab 05/02/24 02:09 Results Troponin I Q3H Lab 05/02/24 02:09 Results Troponin I Q3H Lab 05/02/24 05:15 Ordered ECG Data Tracing #1: I reviewed this ECG and interpreted as documented below: Atrial fibrillation with RVR, rate of 153, ST depressions, likely demand ischemia ECG initial impression date: 05/02/24 ECG initial impression time: 02:07 Tracing #2: I reviewed this ECG and interpreted as documented below: Sinus bradycardia with rate of 56, resolution of ST changes with normalization in rate ECG initial impression date: 05/02/24 ECG initial impression time: 02:40 Medical Decision Narrative: 68-year-old female history of paroxysmal A-fib on dig, Dilt, Xarelto presents for palpitations. History was obtained via interactive discussion with patient chart review. On arrival, patient is [afebrile, hemodynamically stable, satting appropriately, alert, oriented x4, GCS 15], moving all extremities spontaneously. Full physical exam performed and significant for no significant physical exam abnormality. Patient is intermittently in A-fib with RVR. Converts back and forth between normal sinus rhythm and A-fib with rates up to 150 Differential includes but is not limited to paroxysmal A-fib, electrolyte derangement,. Patient was given 20 mg of IV diltiazem for symptomatic management and correction of underlying abnormalities. Workup initiated including CBC CMP mag Phos troponin EKG. On re-evaluation, patient converted quickly after IV diltiazem and has remained stable and normal sinus rhythm with rates in the 50s. She reports that that is her normal heart rate. Laboratory workup independently interpreted by me and significant for no significant electrolyte derangement, mild leukocytosis, negative initial troponin Admission was considered, but deemed unnecessary due to conversion, hemodynamic stability.. Given patient history, exam and workup, patient's presentation most likely represents paroxysmal A-fib. After period of observation she remained in sinus rhythm and was deemed appropriate for discharge with outpatient management. Encouraged her to take her home Dilt a couple hours early and when she got home. Procedures Risk/Benefits of Procedure(s) Were Explained: Yes Critical Care Critical Care Time Critical Care Time: Yes Attestation: On , the high probability of a clinically significant, sudden or life threatening deterioration of the following system(s) required my full and direct attention, intervention and personal management. The time I documented below is in addition to time spent performing reported procedures but includes the following listed in this critical care notation. Total Time Total Critical Care Time: 35
[2024-05-02] MEDS: dilTIAZem 25MG/5ML VIAL 20 MG IV (02:16)
[2024-05-02 02:17] LABS: Basophils # 0.1 K/mm3 (0-0.2); Basophils % 0.6 % (0.1-2.0); Eosinophils # 0.3 K/mm3 (0.0-0.4); Eosinophils % 2.4 % (0.1-12.0); Hematocrit 41.8 % (37.0-47.0); Hemoglobin 14.6 g/dL (12.2-16.2); Lymphocytes # 3.1 K/mm3 (0.7-4.5); Lymphocytes % 23.5 % (10-50); Mean Corpuscular HGB Conc 34.9 g/dL (31.8-35.4); Mean Corpuscular Hemoglobin 30.2 pg (27.0-31.2); Mean Corpuscular Volume 86.4 fl (81-99); Mean Platelet Volume 8.2 fl (7.4-10.4); Monocytes # 1.1 K/mm3 (0.1-1.0); Monocytes % 8.4 % (1.7-9.3); Neutrophils # 8.4 K/mm3 (1.8-7.8); Neutrophils % 64.1 % (37.0-80.0); Platelet Count 393 K/mm3 (142-424); Red Blood Count 4.84 M/mm3 (4.20-5.40); Red Cell Distribution Width 11.9 % (11.5-17.5); White Blood Count 13.2 K/mm3 (4.8-10.8)
[2024-05-02 02:21] LABS: Albumin Level 5.3 g/dl (3.5-5.0); Chloride 101 mmol/L (98-107)
[2024-05-02 02:22] LABS: Potassium 3.6 mmoL/L (3.5-5.1); Sodium 138 mmol/L (136-145)
[2024-05-02 02:24] LABS: Alanine Aminotransferase 34 U/L (12-78); Anion Gap 14.6 mEq/L (5-15); Aspartate Amino Transferase 38 U/L (14-36); Blood Urea Nitrogen 10 mg/dl (7-17); Carbon Dioxide 26 mmol/L (22.0-30.0); Creatinine Clearance Estimated 50 mL/min (50-200); Estimated Glomerular Filt Rate 55 ml/min (>60); GFR (African American) 67 ML/MIN (>60)
[2024-05-02 02:25] LABS: Albumin/Globulin Ratio 1.6 (1.1-1.8); Alkaline Phosphatase 119 U/L (38-126); Bilirubin,Total 0.5 mg/dl (0.2-1.3); Calcium 10.2 mg/dl (8.4-10.2); Globulin 3.3 g/dL (1.3-3.2); Glucose 112 mg/dl (74-100); Magnesium 1.9 mg/dl (1.6-2.3); Phosphorous 4.5 mg/dl (2.5-4.5); Total Protein,Serum 8.6 g/dl (6.3-8.2)
--- NOTE | 2024-05-02 02:27 | PC.NURSE ---
Patient resting in bed. Denies any distress. Talking with visitor.
[2024-05-02 02:30] VITALS: BP 137/68; PULSE 61; RESP 15; O2SAT 98
[2024-05-02 02:39] LABS: Troponin I < 0.01 ng/ml (0.00-0.034)
--- NOTE | 2024-05-02 02:40 | ECG_ITS ---
APPROVED REPORT Exam: Resting ECG HR:56 bpm ECG Measurements Heart Rate 56 AXES UT 172 P 50 QRSd 86 QRS 49 QT 371 T 56 QTc 362 Conclusion SINUS BRADYCARDIA BORDERLINE ECG Electronically signed by : RENA GREGORY, 05/07/2024 09:30:28
[2024-05-02 02:42] LABS: T4 (Thyroxine) 7.2 ug/dl (5.53-11.0)
[2024-05-02 02:49] VITALS: BP 137/68; PULSE 55; RESP 16; TEMP 36.6; O2SAT 100
--- NOTE | 2024-05-02 02:51 | PC.NURSE ---
Patient IV removed. Catheter tip intact. Bleeding controlled.
[2024-05-02 02:55] LABS: Thyroid Stimulating Hormone 5.32 uIU/mL (0.465-4.68)
--- NOTE | 2024-05-02 02:56 | PC.NURSE ---
Patient is discharged, however I am unable to pull them off the board at this time due to registration issues.
[2024-05-02 03:16] LABS: HIV Combo NEGATIVE (Negative)
[2024-05-02 03:24] LABS: Hepatitis C Ab Qual. W/ RFX NEGATIVE (Negative)
== END 2024-05-02 02:58 | disposition home or self-care (01) ==
PROVIDERS: Emergency Provider Emergency Medicine; PCP Family Medicine
DX: R00.2 Palpitations (principal); I48.91 Unspecified atrial fibrillation
CPT/HCPCS: 80053; 83735; 84100; 84436; 84443; 84484; 85025; 86803; 87389; 93005; 96374; 99291

== ENCOUNTER 2024-05-31 15:45 | Emergency (ER) | payer MEDICARE, SELFPAY ==
[2024-05-31 15:53] VITALS: BP 186/72; PULSE 67; RESP 18; TEMP 36.6; O2SAT 98; BMI 25.7
--- NOTE | 2024-05-31 16:07 | ECG_ITS ---
APPROVED REPORT Exam: Resting ECG HR:65 bpm ECG Measurements Heart Rate 65 AXES MO 160 P 42 QRSd 80 QRS 18 QT 357 T 31 QTc 368 Conclusion SINUS RHYTHM No acute ST changes Electronically signed by : DENISE JONES, 05/31/2024 23:46:21
[2024-05-31 18:13] VITALS: BP 000/000; PULSE 0; RESP 0; TEMP -17.7; TEMP 0; O2SAT 0
--- NOTE | 2024-05-31 18:15 | PC.NURSE ---
Pt asks if she can call back to receive ekg results. Pt advised that staff is not able to call results in situation of patient leaving without being seen. Pt left with no acute distress noted.
--- NOTE | 2024-05-31 23:21 | EXP.EVENT.NO ---
Patient presented to the ED for evaluation on 05/31/2024. EKG was obtained and independently interpreted myself at 1608 which demonstrated normal sinus rhythm with no acute ST changes concerning for ischemia. Triage nurse assessed the patient, obtain vitals, and placed the patient back out to the lobby pending room evaluation, at which point patient left without being seen.
== END 2024-05-31 18:13 | disposition left against medical advice (07) ==
LOC: ER 15:59
PROVIDERS: Emergency Provider Emergency Medicine; PCP Family Medicine
DX: Z53.21 Procedure and treatment not carried out due to patient leaving prior to being seen by health care provider (principal); R00.2 Palpitations
CPT/HCPCS: 93005; 99281

== ENCOUNTER 2024-09-17 19:44 | Emergency (ER) | payer MEDICARE, SELFPAY ==
[2024-09-17 20:05] VITALS: BP 147/97; PULSE 70; RESP 23; TEMP 36.6; O2SAT 99; BMI 23.6
--- NOTE | 2024-09-17 20:05 | ECG_ITS ---
APPROVED REPORT Exam: Resting ECG HR:81 bpm ECG Measurements Heart Rate 81 AXES QRSd 85 QRS 6 QT 326 T -1 QTc 363 Conclusion A-fib LVH No STEMI Electronically signed by : FREDDY SPAULDING, 09/17/2024 23:01:36
--- NOTE | 2024-09-17 20:09 | HMH.EDGENADL ---
Discharge Plan Disposition Patient Disposition: Home, Self-Care Condition: Good Prescriptions Prescriptions: No Action digoxin 125 mcg (0.125 mg) tablet 125 mcg PO DAILY Qty: 90 3RF Eliquis 5 mg tablet 5 mg PO BID Qty: 60 5RF azelastine 205.5 mcg (0.15 %) spray,non-aerosol 1 spray intranasal BID Qty: 30 2RF Rx Instructions: administer into each nostril diltiazem HCl 180 mg capsule,extended release 24hr 180 mg PO DAILY Qty: 90 1RF atorvastatin 10 mg tablet See Rx Instructions .ROUTE .COMPLEX Qty: 90 3RF Dose Instruction: TAKE 1 TABLET BY MOUTH ONCE DAILY FOR CHOLESTEROL Rx Instructions: TAKE 1 TABLET BY MOUTH ONCE DAILY FOR CHOLESTEROL famotidine 40 mg tablet See Rx Instructions .ROUTE .COMPLEX Qty: 90 0RF Dose Instruction: Take 1 tablet by mouth once daily Rx Instructions: Take 1 tablet by mouth once daily losartan 25 mg tablet 25 mg PO .COMPLEX 90 Days Qty: 90 0RF Rx Instructions: 25 mg orally; prednisone 50 mg tablet 50 mg PO DAILY Qty: 7 0RF amoxicillin-pot clavulanate 875-125 mg tablet 1 tab PO BID 10 Days Qty: 20 0RF Referrals Follow up/Referrals: Greg Ramos MD [Primary Care Provider, Internal Medicine] - See instructions Activity Restrictions/Add. Instructions Additional Instructions/Restrictions: Please return to the emergency department with any worsening signs or symptoms, continue to take all your medication as prescribed, please follow-up with your director of physical education and PCP in the upcoming days/weeks. Clinical Impressions Clinical Impression: Paroxysmal atrial fibrillation, Heart palpitations Instructions Patient Instructions: DI for Atrial Fibrillation, DI for Palpitations Print Language Print Language: Bengali Discharge ED Provider: Tim Garg General Adult HPI <URMILA Yu - Last Filed: 09/17/24 21:20> General Chief complaint: Arrhythmia/Palpitations Stated complaint: Heart does not feel right,denies pain Time Seen by Provider: 09/17/24 19:58 Mode of Arrival: Ambulatory Source of Information: Patient Limitations: No Limitations History of Present Illness HPI narrative: 69-year-old female presents to the emergency department with heart palpitations, that she noted several hours ago today, patient states that she has been working outside in the heat , she thinks this may have contributed to it, she also states that her heart just does not feel right . She denies any fever or chills, states she has been actively treated for a sinus infection and is currently on amoxicillin , she denies any overt chest pain denies shortness of breath, denies any heart palpitations currently, she states I just want to get checked out . Denies any abdominal pain nausea vomiting constipation diarrhea no urinary type symptomatology, no history of tobacco use, no alcohol or other drug use, other past medical history is consistent with atrial fibrillation on anticoagulation therapy with Eliquis, on rate control with diltiazem, as well as digoxin, patient does tell me that several days ago she went to the pharmacy to refill her diltiazem, however they did not have this medication and she was told that she was placed on something similar . However, she cannot tell me what the medication is. Other past medical history consistent with hypertension, hyperlipidemia, GERD, initial triage vitals are unremarkable. Onset (ago): hour(s) Related Data Previous Rx's ?Medication ?Instructions ?Recorded azelastine 205.5 mcg (0.15 %) 1 spray intranasal BID #30 mL 12/10/22 nasal spray diltiazem HCl 180 mg 180 mg PO DAILY #90 caps 03/15/24 capsule,extended release 24 hr atorvastatin 10 mg tablet See Rx Instructions .Route 05/27/24 .COMPLEX #90 tabs famotidine 40 mg tablet See Rx Instructions .Route 06/29/24 .COMPLEX #90 tabs apixaban 5 mg tablet (Eliquis) 5 mg PO BID Blood thinner/atrial 08/09/24 fib #60 tabs digoxin 125 mcg (0.125 mg) tablet 125 mcg PO DAILY #90 tabs 08/09/24 losartan 25 mg tablet 25 mg PO .COMPLEX 90 days #90 tabs 08/19/24 prednisone 50 mg tablet 50 mg PO DAILY #7 tabs 09/02/24 amoxicillin 875 mg-potassium 1 tab PO BID 10 days #20 tabs 09/13/24 clavulanate 125 mg tablet Allergies Allergy/AdvReac Type Severity Reaction Status Date / Time tetanus and diphtheria Allergy Intermediate Other Verified 09/17/24 20:31 toxoids codeine AdvReac Intermediate Vomiting Verified 09/17/24 20:31 [facility] <URMILA Yu - Last Filed: 09/17/24 21:20> [facility] Disclaimer: The information contained in this section may have been updated after the patient was seen, as this information can be updated by other users. Medical History (Updated 09/17/24 @ 21:20 by URMILA Yu) Mixed hyperlipidemia Atrial enlargement, left GERD (gastroesophageal reflux disease) Anxiety High cholesterol Sinus bradycardia HTN (hypertension) Atrial flutter Surgical History History of colonoscopy History of tonsillectomy Family History Father Coronary artery disease Heart attack Grandfather Coronary artery disease Heart attack Social History Smoking Status: Never smoker alcohol intake: current alcohol intake frequency: a few times a month substance use type: denies use current occupational status: employed Travel in the last 8 weeks?: None Have you lived/traveled outside US in past 30 days?: No Contact w/someone who lives/traveled outside US past 30 days?: No Exposure to someone with infectious disease in past 14 days?: No Do you have a fever (greater than 100.4 F or 38 C)?: No Have you tested positive for COVID-19?: No Exposed to someone with COVID-19 in past 14 days?: No Do you have a sore throat?: No Do you have a cough?: No Do you have any weakness?: No Do you have any diarrhea?: No Are you experiencing any unusual bleeding?: No Do you have any muscle aches/pain?: No Do you have any abdominal pain?: No Are you experiencing loss of taste or smell?: No Other Medical History Have you received the Flu Vaccine for this season: No Have you received the Pneumonia Vaccine: No <URMILA Yu - Last Filed: 09/17/24 21:20> ROS Obtained: Yes All systems reviewed & no additional complaints except as documented Physical Exam <URMILA Yu - Last Filed: 09/17/24 21:20> General General appearance: alert and in no apparent distress Head Head exam: atraumatic and normocephalic Eye Eye exam: Present PERRL and EOMI ENT ENT exam: Present mucous membranes moist Neck Neck exam: Present normal inspection Chest Chest inspection: Present normal inspection and symmetric chest wall rise Respiratory Respiratory exam: Present normal lung sounds bilaterally; Absent respiratory distress Cardiovascular Cardiovascular exam: Present regular rate and irregular rhythm Abdominal Exam Abdominal exam: Present soft; Absent tenderness Extremities Exam Extremities exam: Present normal inspection Neurological Exam Neurological exam: Present alert and oriented X3 Psychiatric Psychiatric exam: Present normal affect Skin Skin exam: Present warm and dry Medical Decision Making <URMILA Yu - Last Filed: 09/17/24 21:20> Medical Records Medical records reviewed: Yes I reviewed the patient's medical records. Screening: Per USPSTF and CDC recommendations, given the prevalence of disease in our region, it is our hospital?s policy to screen for HIV and viral Hepatitis for all patients aged 18 and over and those with ongoing risk factors. Alejo Inquiry Pt receiving controlled substance: No Alejo was queried for this patient: No Vital Signs: 09/17/24 20:05 09/17/24 21:29 Temperature 97.9 F 98.1 F Temperature Source Oral Pulse Rate 48 L Pulse Rate [Left] 70 Respiratory Rate 23 20 Blood Pressure 141/76 H Blood Pressure [Right Arm] 147/97 H Blood Pressure Mean [Right Arm] 113 Blood Pressure Source [Right Arm] Automatic Cuff Blood Pressure Position [Right Arm] Sitting 02 Sat by Pulse Oximetry 99 Oxygen Delivery Method Room Air Room Air Lab Data Lab results reviewed: Yes I reviewed the patient's lab results. Lab Results 09/17/24 20:00: WBC 11.4 H, RBC 4.36, Hgb 12.7, Hct 38.5, MCV 88.3, MCH 29.1, MCHC 33.0, RDW 12.1, Plt Count 345, MPV 8.2, Neut % (Auto) 62.8, Lymph % (Auto) 27.7, Knox % (Auto) 7.6, Eos % (Auto) 0.7, Baso % (Auto) 0.4, Neut # (Auto) 7.2, Lymph # (Auto) 3.2, Knox # (Auto) 0.9, Eos # (Auto) 0.1, Baso # (Auto) 0.0, PT 10.2, INR 0.91, Sodium 139, Potassium 3.9, Chloride 103, Carbon Dioxide 27, Anion Gap 12.9, BUN 16, Creatinine 1.00, Estimated Creat Clear 50, Estimated GFR 55 L, Est GFR ( Amer) 66, Glucose 95, Calcium 10.1, Magnesium 2.3, Total Bilirubin 0.6, AST 43 H, ALT 56, Alkaline Phosphatase 92, Troponin I < 0.01, NT-Pro-B Natriuret Pep 844 H, Total Protein 7.6, Albumin 4.5, Globulin 3.1, Albumin/Globulin Ratio 1.5, TSH 2.08, Thyroxine (T4) 6.8 09/17/24 20:00 09/17/24 20:00 Orders (Tests/Meds): ORDERS Category Date Time Status XR chest portable Stat Exams 09/17/24 20:14 Completed Complete Blood Count Auto Diff Stat Lab 09/17/24 20:00 Completed Comprehensive Metabolic Panel Stat Lab 09/17/24 20:00 Completed Magnesium Stat Lab 09/17/24 20:00 Completed NT Pro Brain Natriuretic Pep. Stat Lab 09/17/24 20:00 Completed PT INR [Prothrombin Time INR] Stat Lab 09/17/24 20:00 Completed T4 (Thyroxine) Stat Lab 09/17/24 20:00 Completed TSH [Thyroid Stimulating Hormone] Stat Lab 09/17/24 20:00 Completed Troponin I Stat Lab 09/17/24 20:00 Completed Medical Decision Narrative: 69-year-old female presents to the emergency department with heart palpitations, differential diagnosis include but not limited to, cardiac arrhythmia, electrolyte disturbance, ACS, pneumonia, anxiety reaction, panic attack, among others. I discussed patient case with attending physician Will obtain basic laboratory studies, CXR, magnesium level proBNP PT/INR, T4, TSH, troponin, EKG CBC is notable for leukocytosis. CBC notable for 11.4 leukocytosis Coags within normal limits CMP is notable for normal troponin at less than 0.01, proBNP is mildly elevated 844. T4 within normal limits, AST is minimally elevated. I reviewed the patient's EKG at 2004, along with the attending physician, atrial fibrillation 81 bpm, QT interval within normal limits, there is no STEMI. Reexamination of the patient at approximately 9:15 PM, patient continues remain asymptomatic, she is remained hemodynamically stable throughout time in the emergency department, patient has history of atrial fibrillation, on Cardizem and digoxin, and on anticoagulant therapy, she has not had any episodes of A-fib with RVR or any chest pain chest tightness shortness of breath or palpitations here in the emergency department, discussed all results with her at the bedside, patient will already be discharged home to self-care, I think this is reasonable. Patient will follow-up with PCP and director of physical education in the upcoming days, patient was given strict ED return precautions. <Tim Garg MD - Last Filed: 09/18/24 15:16> Vital Signs: 09/17/24 20:05 09/17/24 21:29 Temperature 97.9 F 98.1 F Temperature Source Oral Pulse Rate 48 L Pulse Rate [Left] 70 Respiratory Rate 23 20 Blood Pressure 141/76 H Blood Pressure [Right Arm] 147/97 H Blood Pressure Mean [Right Arm] 113 Blood Pressure Source [Right Arm] Automatic Cuff Blood Pressure Position [Right Arm] Sitting 02 Sat by Pulse Oximetry 99 Oxygen Delivery Method Room Air Room Air Lab Data Lab Results 09/17/24 20:00: WBC 11.4 H, RBC 4.36, Hgb 12.7, Hct 38.5, MCV 88.3, MCH 29.1, MCHC 33.0, RDW 12.1, Plt Count 345, MPV 8.2, Neut % (Auto) 62.8, Lymph % (Auto) 27.7, Knox % (Auto) 7.6, Eos % (Auto) 0.7, Baso % (Auto) 0.4, Neut # (Auto) 7.2, Lymph # (Auto) 3.2, Knox # (Auto) 0.9, Eos # (Auto) 0.1, Baso # (Auto) 0.0, PT 10.2, INR 0.91, Sodium 139, Potassium 3.9, Chloride 103, Carbon Dioxide 27, Anion Gap 12.9, BUN 16, Creatinine 1.00, Estimated Creat Clear 50, Estimated GFR 55 L, Est GFR ( Amer) 66, Glucose 95, Calcium 10.1, Magnesium 2.3, Total Bilirubin 0.6, AST 43 H, ALT 56, Alkaline Phosphatase 92, Troponin I < 0.01, NT-Pro-B Natriuret Pep 844 H, Total Protein 7.6, Albumin 4.5, Globulin 3.1, Albumin/Globulin Ratio 1.5, TSH 2.08, Thyroxine (T4) 6.8 Orders (Tests/Meds): ORDERS Category Date Time Status XR chest portable Stat Exams 09/17/24 20:14 Completed Complete Blood Count Auto Diff Stat Lab 09/17/24 20:00 Completed Comprehensive Metabolic Panel Stat Lab 09/17/24 20:00 Completed Magnesium Stat Lab 09/17/24 20:00 Completed NT Pro Brain Natriuretic Pep. Stat Lab 09/17/24 20:00 Completed PT INR [Prothrombin Time INR] Stat Lab 09/17/24 20:00 Completed T4 (Thyroxine) Stat Lab 09/17/24 20:00 Completed TSH [Thyroid Stimulating Hormone] Stat Lab 09/17/24 20:00 Completed Troponin I Stat Lab 09/17/24 20:00 Completed ECG Data Tracing #1: I reviewed this ECG and interpreted as documented below: (Atrial fibrillation 81 bpm with QRS 85, QTc 363. LVH. There are ST and T wave changes in inferior leads without reciprocal change) Medical Decision Narrative: 69-year-old female presents to the emergency department with heart palpitations, differential diagnosis include but not limited to, cardiac arrhythmia, electrolyte disturbance, ACS, pneumonia, anxiety reaction, panic attack, among others. I discussed patient case with attending physician Will obtain basic laboratory studies, CXR, magnesium level proBNP PT/INR, T4, TSH, troponin, EKG CBC is notable for leukocytosis. CBC notable for 11.4 leukocytosis Coags within normal limits CMP is notable for normal troponin at less than 0.01, proBNP is mildly elevated 844. T4 within normal limits, AST is minimally elevated. I reviewed the patient's EKG at 2004, along with the attending physician, atrial fibrillation 81 bpm, QT interval within normal limits, there is no STEMI. Reexamination of the patient at approximately 9:15 PM, patient continues remain asymptomatic, she is remained hemodynamically stable throughout time in the emergency department, patient has history of atrial fibrillation, on Cardizem and digoxin, and on anticoagulant therapy, she has not had any episodes of A-fib with RVR or any chest pain chest tightness shortness of breath or palpitations here in the emergency department, discussed all results with her at the bedside, patient will already be discharged home to self-care, I think this is reasonable. Patient will follow-up with PCP and director of physical education in the upcoming days, patient was given strict ED return precautions. I was consulted by the RAMILA, and we discussed the complexity of the problems being addressed. I approved the treatment and management plan for this patient's care in the Emergency Department, thus performing a substantive portion of the medical decision making. Tim Garg MD Critical Care <URMILA Yu - Last Filed: 09/17/24 21:20> Critical Care Time Critical Care Time: No
--- NOTE | 2024-09-17 20:14 | XR_ITS ---
PROCEDURE INFORMATION: Exam: XR Chest Exam date and time: 09/17/2024 8:28 PM Age: 69 years old Clinical indication: Shortness of breath; Additional info: SOA TECHNIQUE: Imaging protocol: Radiologic exam of the chest. Views: 1 view. COMPARISON: CR XR CHEST PORTABLE 11/27/2021 12:57 AM FINDINGS: Lungs: Lungs are clear. Pleural spaces: No pleural effusion. No pneumothorax. Heart/Mediastinum: Stable cardiomediastinal silhouette. Bones/joints: No acute osseous abnormality. IMPRESSION: No acute findings.
[2024-09-17 20:21] LABS: Basophils % 0.4 % (0.1-2.0); Eosinophils # 0.1 Kmm3 (0.0-0.4); Eosinophils % 0.7 % (0.1-12.0); Hematocrit 38.5 % (37.0-47.0); Hemoglobin 12.7 g/dL (12.2-16.2); Immature Granulocytes # 0.09 10^3uL; Immature Granulocytes % 0.8 %; Lymphocytes # 3.2 K/mm3 (0.7-4.5); Lymphocytes % 27.7 % (10-50); Mean Corpuscular Hemoglobin 29.1 pg (27.0-31.2); Mean Corpuscular Volume 88.3 fl (81-99); Mean Platelet Volume 8.2 fl (7.4-10.4); Monocytes # 0.9 K/mm3 (0.1-1.0); Monocytes % 7.6 % (1.7-9.3); Neutrophils # 7.2 K/mm3 (1.8-7.8); Neutrophils % 62.8 % (37.0-80.0); Nucleated Red Blood Cells # 0 10^3/uL; Nucleated Red Blood Cells % 0 %; Platelet Count 345 K/mm3 (142-424); Red Blood Count 4.36 M/mm3 (4.20-5.40); Red Cell Distribution Width 12.1 % (11.5-17.5); Red Cell Distribution Width-SD 39.4 fL; White Blood Count 11.4 K/mm3 (4.8-10.8)
[2024-09-17 20:26] LABS: INR 0.91 (0.9-1.1); Prothrombin Time 10.2 seconds (10.1-12.5)
[2024-09-17 20:27] LABS: Alanine Aminotransferase 56 U/L (12-78); Albumin Level 4.5 g/dl (3.5-5.0); Albumin/Globulin Ratio 1.5 (1.1-1.8); Alkaline Phosphatase 92 U/L (38-126); Anion Gap 12.9 mEq/L (5-15); Aspartate Amino Transferase 43 U/L (14-36); Bilirubin,Total 0.6 mg/dl (0.2-1.3); Blood Urea Nitrogen 16 mg/dl (7-17); Calcium 10.1 mg/dl (8.4-10.2); Carbon Dioxide 27 mmol/L (22.0-30.0); Chloride 103 mmol/L (98-107); Creatinine Clearance Estimated 50 mL/min (50-200); Estimated Glomerular Filt Rate 55 ml/min (>60); GFR (African American) 66 ML/MIN (>60); Globulin 3.1 g/dL (1.3-3.2); Glucose 95 mg/dl (74-100); Magnesium 2.3 mg/dl (1.6-2.3); Potassium 3.9 mmoL/L (3.5-5.1); Sodium 139 mmol/L (136-145); Total Protein,Serum 7.6 g/dl (6.3-8.2)
[2024-09-17 20:39] LABS: NT Pro Brain Natriuretic Pep. 844 pg/mL (0-125)
[2024-09-17 20:42] LABS: Troponin I < 0.01 ng/ml (0.00-0.034)
[2024-09-17 20:44] LABS: T4 (Thyroxine) 6.8 ug/dl (5.53-11.0)
[2024-09-17 20:57] LABS: Thyroid Stimulating Hormone 2.08 uIU/mL (0.465-4.68)
[2024-09-17 21:29] VITALS: BP 141/76; PULSE 48; RESP 20; TEMP 36.7; O2SAT 98
== END 2024-09-17 21:36 | disposition home or self-care (01) ==
PROVIDERS: Physician Assistant; Emergency Provider Emergency Medicine; PCP Family Medicine
DX: I48.0 Paroxysmal atrial fibrillation (principal); R00.2 Palpitations; I10 Essential (primary) hypertension
CPT/HCPCS: 71045; 80053; 83735; 83880; 84436; 84443; 84484; 85025; 85610; 93005; 99284

== ENCOUNTER 2024-11-19 18:14 | Outpatient (CLI) | payer MEDICARE, SELFPAY ==
--- OUTSIDE RECORDS SUMMARY | 2024-11-19 18:17 | XMS_ITS | Referral Summary ---
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 Active atorvastatin (LIPITOR) 10 MG tablet Take 1 tablet (10 mg total) by mouth in the morning. 3 Active digoxin (LANOXIN) 0.125 MG tablet Take 1 tablet (125 mcg total) by mouth in the morning. 3 Active dilTIAZem (CARDIZEM CD) 180 MG 24 hr capsule Take 1 capsule (180 mg total) by mouth in the morning. 3 Active hydroCHLOROthiazid e (HYDRODIURIL) 25 MG tablet Take 1 tablet (25 mg total) by mouth in the morning. 3 Active losartan (COZAAR) 25 MG tablet Take 1 tablet (25 mg total) by mouth in the morning. 3 Active ondansetron (ZOFRAN-ODT) 4 MG disintegrating tablet Take 1 tablet (4 mg total) by mouth every 8 (eight) hours as needed. 3 Active pantoprazole (PROTONIX) 40 MG tablet Take 1 tablet (40 mg total) by mouth in the morning and 1 tablet (40 mg total) before bedtime. 3 Active wkzqmu-bbuqvorwa-b ag sulfates (Suprep Bowel Prep Kit) 17.5-3.13-1.6 gram solution Use as directed- pt will have directions on how to take. 354 mL Active Social History Tobacco Use Types Packs/Day Years Used Date Smoking Tobacco: Never Smokeless Tobacco: Never Tobacco Cessation:Counseling Given: Not Answered Alcohol Use Standard Drinks/Week Comments Yes 0 (1 standard drink = 0.6 oz pur e alcohol) Food Insecurity Answer Date Recorded Food run out past 12 months Not on file 03/24 Food did not last past 12 months Not on file 04/04/2023 Employment Answer Date Recorded Help finding and keeping a job Not on file 0 04/04/2023 Family and Community Support Answer Naga e Recorded Help with Day to Day Activities Not on file 04/04/2023 Feeling Lonely or Isolated Not on file 04/04 Educational Attainment Answer Date Mukesh rded Speak language other than Vietnamese at home Not on file 04/04/2023 Want help with school or training Not on file 04/04/2023 Substance Use Answer Date Recorded Used prescription meds for non-medical reasons N ot on file 04/04/2023 Used illegal drugs past 12 months Not on file 04/04/2023 Comments Unknown Sex and Gender Information Value Date Recorded Sex Assigned at Not on file 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
--- OUTSIDE RECORDS SUMMARY | 2024-11-19 18:17 | XMS_ITS ---
Author Organization Unknown [facility] Start Date Provider Encounter for Check-up [id number] [facility]
--- OUTSIDE RECORDS SUMMARY | 2024-11-19 18:17 | XMS_ITS | Clinical Summary ---
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 Active Active Problems No known active problems Social History Tobacco Use Types Packs/Day Years Used Date Smoking Tobacco: Never Smokeless Tobacco: Never Tobacco Cessation:Counseling Given: Not Answered Alcohol Use Standard Drinks/Week Comments Never 0 (1 standard drink = 0.6 oz pur e alcohol) Comments Unknown Sex and Gender Information Value Date Recorded Sex Assigned at Not on file Legal Sex Female 9:21 AM EST Gender Identity Not on file Sexual Orientation Not on file Last Filed Vital Signs Vital Sign Reading Time Taken Comments Blood Pressure 127/52 02/27/2022 11:44 AM EST Pulse 50 02/27/2022 11:44 AM EST Temperature 36.6 C (97.8 F) 02/27/2022 11:44 AM EST Respiratory Rate 14 02/27/2022 11:44 AM EST Oxygen Saturation 99% 02/27/2022 11:44 AM EST Inhaled Oxygen Concentration - - Weight 68 kg (149 lb 14.6 oz) 02/27/2022 11:44 A M EST Height 160 cm (5' 3 ) 02/27/2022 11:44 AM EST Body Mass Index 26.56 02/27/2022 11:44 AM EST Plan of Treatment Health Maintenance Due Date Last Done Comments [facility]-Bone Density Scan 1954 [facility]-Depression Screening 1954 [facility]-Hepatitis C Screening 1954 [facility]-Medicare Annual Wellness (AWV) 1954 [facility]-Infant/Child/Adol SDOH Screenings 1954 [facility]- SDOH Screenings 1972 [facility]-Adult SDOH Screenings 1972 [facility]-DTaP,Tdap,and Td Vaccine s (1 - Tdap) 1973 CT Colonography 06/19/1999 Colonoscopy 06/19/1999 FIT-DNA 06/19/1999 FIT 06/19/1999 FOBT 06/19/1999 Sigmoidoscopy 06/19/1999 [facility]-Colorectal Cancer Screening 06/19/1999 [facility]-Breast Cancer Screening 2004 [facility]-Pneumococcal Vaccine: 50 + Years (1 of 1 - PCV) 2004 [facility]-Zoster Vaccines (1 of 2) 2004 [id number] Vaccine (3 - season) 2023 06/22/2020, 05/25/2020 [facility]-Influenza Vaccine (#1) 11/22/202402/16, 02/26/2020 [facility]-RSV Vaccine: 60+ Years o r (1 - 1-dose 75+ series) 2029 [facility]-Obesity Intervention Completed 022, 12/16/2021 HPV Vaccines Aged Out No longer eligi ble based on patient's age to complete this topic [facility]-HIB Vaccines Aged Out No longer e ligible based on patient's age to complete this topic [facility]-Hepatitis A Vaccines Aged Out No longer eligible based on patient's age to complete this topic [facility]-IPV Vaccines Aged Out No longer e ligible based on patient's age to complete this topic [facility]-Rotavirus Vaccines Aged Out No lo nger eligible based on patient's age to complete this topic Insurance [employer] MEDICARE Care Teams 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
--- OUTSIDE RECORDS SUMMARY | 2024-11-19 18:17 | XMS_ITS | Clinical Summary ---
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 Gender Identity Not on file Sexual Orientation [...] 06/20/2022 10:43 AM EDT Plan of Treatment Health Maintenance Due Date Last Done Comments CT Colonography 1954 Colonoscopy 1954 Colorectal Cancer Screening 1954 DXA SCAN 1954 FOBT/FIT 1954 Fit-DNA (Cologuard) 1954 Sigmoidoscopy 1954 Depression Screening (12+) 1966 Hepatitis C Screening 1972 DTAP/TDAP/TD VACCINES (1 - Tdap) 1973 Pneumococcal 50+ years (1 of 2 - PCV) 1973 Breast Cancer Screening 1994 Respiratory Syncytial Virus (RSV) Adult or (1 - Risk 60-74 years 1-dose series) 2014 Shingles Vaccine (Zoster) (2 of 2) 05/20/20222022 Medicare Initial AWV [id number] 03/25/2023 Tobacco Cessation Counseling and Screening (12+) 06/21/2023 06/20/2022 COVID-19 VACCINE ( - season) 11/23/202303/2020, 05/25/2020 Falls Risk Screening 03/24/2024 Influenza Vaccine (#1) 2024 02/16/2022, 2019 Insurance [employer] MEDICARE PPO
--- OUTSIDE RECORDS SUMMARY | 2024-11-19 18:17 | XMS_ITS | Clinical Summary ---
Author Organization [facility] Address [address] [place] [address] Care Team Providers Care Leach Cell Operator Name Role Phone Darren Wagner MD Primary Care Provider [phone] Allergies Active Allergy Reactions Criticality Noted Date Comments Codeine GI Intolerance Medium 09/16/2016 Tetanus Toxoids Other (See Comments) Medium 09/16/2016 SYNCOPE Medications diltiaZEM (TIAZAC) 120 MG 24 hr capsule TAKE 1 CAPSULE BY MOUTH IN THE MORNING FOR RATE CONTROL 5 9 Active losartan (COZAAR) 50 MG tablet 6 9 Active atorvastatin (LIPITOR) 10 MG tablet Take 10 mg by mouth Daily. 0 Active CARTIA XT 120 MG 24 hr capsule Take 120 mg by mouth Daily. 0 Active meloxicam (MOBIC) 15 MG tablet Take 15 mg by mouth Daily. 0 Active amoxicillin-clavu lanate (AUGMENTIN) 875-125 MG per tabletIndications :Acute recurrent pansinusitis Take 1 tablet by mouth 2 (Two) Times a Day. 20 tablet 0 Active Active Problems No known active problems Family History Medical History Relation Name Comments Heart disease Father Relation Name Status Comments Father Mother Social History Tobacco Use Types Packs/Day Years Used Date Smoking Tobacco: Never Abuse Screen Answer Date Recorded Unsafe at Home or Work/School Not on file Feels Threatened by Someone? Not on file 01/2023 Does Anyone Keep You from Co ntacting Others or Doint Things Outside the Home? Not on file 01/01/2023 Physical Sign of Abuse Present Not on file 1 Housing Stability Answer Date Recorded Current Living Arrangements Not on file 12/22 Potentially Unsafe Housing Conditions Not on kasey e 01/01/2023 Family and Community Support Answer Naga e Recorded Help with Day-to-Day Activities Not on file 01/01/2023 Lonely or Isolated Not on file 01/01/2023 Employment Answer Date Recorded Do you want help finding or keeping work or a dorie b? Not on file 01/01/2023 Disabilities Answer Date Recorded Concentrating, Remembering, or Making Decisions Difficulty Not on file 01/01/2023 Doing Errands Independently Difficulty Not on fi le 01/01/2023 Education Answer Date Recorded Help with school or training? Not on file Preferred Language Not on file 01/01/2023 Comments No Sex and Gender Information Value Date Recorded Sex Assigned at Not on file Legal Sex Female 10:16 AM EDT Gender Identity Not on file Sexual Orientation Not on file Last Filed Vital Signs Vital Sign Reading Time Taken Comments Blood Pressure 132/68 06/03/2019 9:05 AM EDT Pulse 63 06/03/2019 8:51 AM EDT Temperature 37.2 C (98.9 F) 06/03/2019 8:51 AM EDT Respiratory Rate 15 06/03/2019 8:51 AM EDT Oxygen Saturation 98% 06/03/2019 8:51 AM EDT Inhaled Oxygen Concentration - - Weight 68.9 kg (151 lb 12.8 oz) 06/03/2019 8:51 AM EDT Height 160 cm (5' 3 ) 06/03/2019 8:51 AM EDT Body Mass Index 26.89 06/03/2019 8:51 AM EDT Plan of Treatment Health Maintenance Due Date Last Done Comments DXA SCAN 1954 MAMMOGRAM 1994 COLOGUARD 06/19/1999 COLON CANCER SCREENING 5 YEAR SIGMOIDOSCOPY 06/19/1999 COLONOSCOPY 06/19/1999 COLORECTAL CANCER SCREENING 06/19/1999 CT COLONOGRAPHY 06/19/1999 FECAL OCCULT BLOOD TEST 06/19/1999 FIT Testing (1 year) 06/19/1999 Pneumococcal Vaccine 50+ (1 of 1 - PCV) 2004 ZOSTER VACCINE (1 of 2) 2004 ANNUAL PHYSICAL 09/16/2016 HEPATITIS C SCREENING 09/16/2016 COVID-19 Vaccine (2023- season) 2023 INFLUENZA VACCINE 12/22/2024 Insurance Care Teams Leach Cell Operator Relationship Specialty Start Date End Date Darren Wagner MD [address] [place] [address] PCP - General Family Medicine 09/16/16
--- NOTE | 2024-11-19 18:37 | XR_ITS ---
PROCEDURE INFORMATION: Exam: XR Right Knee Exam date and time: 11/19/2024 6:28 PM Age: 69 years old Clinical indication: Injury or trauma; Fall; Blunt trauma; Knee; Right; Additional info: Fall pain right knee TECHNIQUE: Imaging protocol: Radiologic exam of the right knee. Views: 3 views. COMPARISON: No relevant prior studies available. FINDINGS: Bones/joints: No acute fracture or malalignment. No significant joint effusion. Mild patellar enthesopathy. Mild osteoarthritis. Soft tissues: Mild prepatellar soft tissue swelling. IMPRESSION: Mild prepatellar soft tissue swelling. No acute osseous findings.
== END 2024-11-19 23:59 | disposition home or self-care (01) ==
LOC: RAD 18:15
PROVIDERS: PCP Family Medicine; Visit Provider Nurse Practitioner
DX: M79.89 Other specified soft tissue disorders (principal); M25.561 Pain in right knee; W19.XXXA Unspecified fall, initial encounter
CPT/HCPCS: 73562

== ENCOUNTER 2025-03-19 01:31 | Emergency (ER) | payer MEDICARE, SELFPAY ==
[2025-03-19] VITALS (7 sets, daily range): BP systolic 138–203; BP diastolic 59–79; PULSE 60–77; RESP 13–22; TEMP 36.6–36.8; O2SAT 98–100; BMI 23.3
--- NOTE | 2025-03-19 01:41 | ECG_ITS ---
APPROVED REPORT Exam: Resting ECG HR:59 bpm ECG Measurements Heart Rate 59 AXES DC 162 P 14 QRSd 87 QRS 18 QT 374 T 53 QTc 374 Conclusion SINUS BRADYCARDIA No STEMI Electronically signed by : MIKIE AMADO, 03/19/2025 06:29:09
--- OUTSIDE RECORDS SUMMARY | 2025-03-19 01:46 | XMS_ITS | Clinical Summary ---
Author Organization [facility] Address [address] [place] [address] Care Team Providers Care Prison Psychiatrist Name Role Phone Darren Wagner MD Primary Care Provider [phone] Allergies Active Allergy Reactions Criticality Noted Date Comments Codeine GI Intolerance Medium 09/16/2016 Tetanus Toxoid-Containing Vaccines Other (See Comments) Medium 09/16/2016 SYNCOPE Medications [...] ANNUAL PHYSICAL 09/16/2016 HEPATITIS C SCREENING 09/16/2016 INFLUENZA VACCINE 10/22/2024 COVID-19 Vaccine ( season) 2024 Insurance [employer]HU[employer] MEDICARE ADVANTAGE Care Teams Prison Psychiatrist Relationship Specialty Start Date End Date Darren Wagner MD [address] [place] [address] PCP - General Family Medicine 09/16/16
--- OUTSIDE RECORDS SUMMARY | 2025-03-19 01:46 | XMS_ITS | Clinical Summary ---
Author Organization [facility] Address [address] [place] [address] Care Team Providers Care Middle School Football Coach Name Role Phone Julissa Hernandez CAMERON Primary Care Provider [phone] Allergies Active Allergy Reactions Criticality Noted Date Comments Codeine Diarrhea Medium 09/16/2016 Tetanus Toxoid-Containing Vaccines Other - please document in the comment field Medium 09/16/2016 SYNCOPE [...] 2004 UKY-Zoster Vaccines (1 of 2) 2004 [id number]-80 Vaccine (3 - season) 2024 06/22/2020, 05/25/2020 UKY-Influenza Vaccine (#1) 11/22/202402/16, 02/26/2020 UKY-RSV Vaccine: 60+ Years o r (1 - 1-dose 75+ series) 2029 HPV Vaccines (No Doses Required) Completed UKY-HIB Vaccines Aged Out No longer e [...] this topic Insurance HUMANA MEDICARE Care Teams Middle School Football Coach Relationship Specialty Start Date End Date Julissa Hernandez APRN [address] [place] [address] PCP - General 03/10/21
--- OUTSIDE RECORDS SUMMARY | 2025-03-19 01:46 | XMS_ITS | Referral Summary ---
Author Organization [employer] ([place], [place], [place], [place], [place]) Address [address] [place] [address] Care Team Providers Care Retail Warehouse Supervisor Name Role Phone Unavailable Primary Care Provider [...] (40 mg total) before bedtime. 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
--- OUTSIDE RECORDS SUMMARY | 2025-03-19 01:46 | XMS_ITS | Clinical Summary ---
Author Organization [employer] ([place], [place], [place], [place], [place]) Address [address] [place] [address] Care Team Providers Care Pr Intern Name Role Phone Unavailable Primary Care Provider [...] (40 mg total) before bedtime. 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
--- NOTE | 2025-03-19 01:53 | XR_ITS ---
PROCEDURE INFORMATION: Exam: XR Chest Exam date and time: 03/19/2025 2:19 AM Age: 69 years old Clinical indication: Other: HTN TECHNIQUE: Imaging protocol: Radiologic exam of the chest. Views: 1 view. COMPARISON: CR XR CHEST PORTABLE 09/17/2024 8:28 PM FINDINGS: Lungs: Mild hyperinflation. No consolidation. Pleural spaces: Unremarkable. No pleural effusion. No pneumothorax. Heart/Mediastinum: Unremarkable. No cardiomegaly. Bones/joints: Unremarkable. IMPRESSION: No acute findings.
[2025-03-19 02:03] LABS: Hematocrit 36.0 % (37.0-47.0); Hemoglobin 12.3 g/dL (12.2-16.2); Immature Granulocytes % 1.2 %; Mean Corpuscular HGB Conc 34.2 g/dL (31.8-35.4); Mean Corpuscular Hemoglobin 30.2 pg (27.0-31.2); Mean Corpuscular Volume 88.5 fl (81-99); Nucleated Red Blood Cells % 0 %; Platelet Count 294 K/mm3 (142-424); Red Blood Count 4.07 M/mm3 (4.20-5.40); Red Cell Distribution Width-SD 36.9 fL; White Blood Count 8.6 K/mm3 (4.8-10.8)
[2025-03-19 02:09] LABS: Alanine Aminotransferase 70 U/L (12-78); Albumin Level 4.6 g/dl (3.5-5.0); Albumin/Globulin Ratio 1.6 (1.1-1.8); Alkaline Phosphatase 101 U/L (38-126); Anion Gap 11.8 mEq/L (5-15); Aspartate Amino Transferase 46 U/L (14-36); Bilirubin,Total 0.5 mg/dl (0.2-1.3); Blood Urea Nitrogen 15 mg/dl (7-17); Calcium 9.6 mg/dl (8.4-10.2); Carbon Dioxide 23 mmol/L (22.0-30.0); Chloride 101 mmol/L (98-107); Creatinine Clearance Estimated 45 mL/min (50-200); Creatinine,Serum 1.10 mg/dl (0.52-1.04); Estimated Glomerular Filt Rate 49 ml/min (>60); GFR (African American) 59 ML/MIN (>60); Globulin 2.9 g/dL (1.3-3.2); Glucose 110 mg/dl (74-100); Potassium 3.8 mmoL/L (3.5-5.1); Sodium 132 mmol/L (136-145); Total Protein,Serum 7.5 g/dl (6.3-8.2)
[2025-03-19 02:22] LABS: Troponin I < 0.01 ng/ml (0.00-0.034)
--- NOTE | 2025-03-19 02:28 | HMH.EDGENADL ---
Discharge Plan Disposition Patient Disposition: Home, Self-Care Condition: Good Prescriptions Prescriptions: No Action digoxin 125 mcg (0.125 mg) tablet 125 mcg PO DAILY Qty: 90 3RF Eliquis 5 mg tablet 5 mg PO BID Qty: 60 5RF diclofenac sodium 1 % gel 2 g topical QID PRN (Reason: pain) Qty: 100 2RF Rx Instructions: apply to Right knee as directed losartan 50 mg tablet 50 mg PO .COMPLEX 90 Days Qty: 90 3RF Rx Instructions: 50 mg orally ; hydralazine 25 mg tablet 25 mg PO TID PRN (Reason: HTN) Qty: 90 2RF Rx Instructions: Take as needed for BP greater than 170 prednisone 20 mg tablet 40 mg PO DAILY 5 Days Qty: 10 0RF betamethasone dipropionate 0.05 % cream 1 applic topical BID Qty: 15 0RF azelastine 205.5 mcg (0.15 %) spray,non-aerosol 1 spray intranasal BID Qty: 30 2RF Rx Instructions: administer into each nostril atorvastatin 10 mg tablet See Rx Instructions .ROUTE .COMPLEX Qty: 90 3RF Dose Instruction: TAKE 1 TABLET BY MOUTH ONCE DAILY FOR CHOLESTEROL Rx Instructions: TAKE 1 TABLET BY MOUTH ONCE DAILY FOR CHOLESTEROL diltiazem HCl 180 mg capsule,extended release 24hr 180 mg PO DAILY Qty: 90 1RF famotidine 40 mg tablet See Rx Instructions .ROUTE .COMPLEX Qty: 90 0RF Dose Instruction: Take 1 tablet by mouth once daily Rx Instructions: Take 1 tablet by mouth once daily Referrals Follow up/Referrals: Greg Ramos MD [Primary Care Provider, Internal Medicine] - See instructions Activity Restrictions/Add. Instructions Additional Instructions/Restrictions: You were evaluated in the ER and are believed to be appropriate for discharge at this time. Continue taking your home medications as previously prescribed. Follow-up with cardiology Friday at 9 AM as discussed. Make an appointment with your primary care doctor for reevaluation as well. Return to the ER with any new, worsening, or otherwise concerning symptoms. Clinical Impressions Clinical Impression: Hypertension Print Language Print Language: Irish Discharge ED Provider: Demetris Ceballos Adult HPI General Chief complaint: Medical Clearance Stated complaint: afib, new meds, high bp, increased heartrate Time Seen by Provider: 03/19/25 01:37 Mode of Arrival: Ambulatory Source of Information: Patient Description of Symptoms (Recalled from ER Triage Doc. by RN): pt reports that two weeks ago she was started on a new bp med to take if her systolic was over 170. tonight she took the medication for the first time but her bp did not decrease annd her heart rate increased. pt denies any chest pain or palpitations at this time. History of Present Illness HPI narrative: 69-year-old female with history of hypertension, unspecified heart failure, previous liver lesion, hyperlipidemia, A-fib presents to the ER with complaints of high blood pressure. Patient states a couple weeks ago she was started on new blood pressure medication and was told by her mortician helper to take one of her medications if needed if her blood pressure was above 170. She states tonight she took her nighttime blood pressure and it was elevated above 170s so she took this medication but her blood pressure did not significantly improved so she came to the ER. She states she has a history of A-fib with rapid heart rate in the past but they keep her heart rate controlled reportedly typically in the 50s to 60s. She states she noticed that after checking her blood pressure multiple times her heart rate seem to be getting higher though it was not racing. She states it was just a little bit faster than her normal is. She denies any chest pain, palpitations, or pressure. Denies any headache, dizziness, numbness, tingling, or weakness. Denies any changes in urinary habits. She has no other complaints or concerns. Related Data Previous Rx's ?Medication ?Instructions ?Recorded azelastine 205.5 mcg (0.15 %) 1 spray intranasal BID #30 mL 12/10/22 nasal spray atorvastatin 10 mg tablet See Rx Instructions .Route 05/27/24 .COMPLEX #90 tabs apixaban 5 mg tablet (Eliquis) 5 mg PO BID Blood thinner/atrial 08/09/24 fib #60 tabs digoxin 125 mcg (0.125 mg) tablet 125 mcg PO DAILY #90 tabs 08/09/24 diclofenac sodium 1 % topical gel 2 g topical QID PRN pain #100 grams 11/19/24 betamethasone dipropionate 0.05 % 1 applic topical BID thumb pain 02/08/25 topical cream #15 grams prednisone 20 mg tablet 40 mg (2 x 20 mg) PO DAILY 5 days 02/25/25 #10 tabs hydralazine 25 mg tablet 25 mg PO TID PRN HTN #90 tabs 03/01/25 losartan 50 mg tablet 50 mg PO .COMPLEX 90 days #90 tabs 03/01/25 diltiazem HCl 180 mg 180 mg PO DAILY #90 caps 03/03/25 capsule,extended release 24 hr famotidine 40 mg tablet See Rx Instructions .Route 03/15/25 .COMPLEX #90 tabs Allergies Allergy/AdvReac Type Severity Reaction Status Date / Time tetanus and diphtheria Allergy Intermediate Fainting Verified 03/01/25 10:06 toxoids codeine AdvReac Intermediate Vomiting Verified 03/01/25 10:06 PFSH [facility] Disclaimer: The information contained in this section may have been updated after the patient was seen, as this information can be updated by other users. Medical History Knee pain, right Heart failure, unspecified Hypertensive heart disease with heart failure Mixed hyperlipidemia Atrial enlargement, left GERD (gastroesophageal reflux disease) Anxiety High cholesterol Sinus bradycardia HTN (hypertension) Atrial flutter Surgical History History of colonoscopy History of tonsillectomy Family History Father Coronary artery disease Heart attack Grandfather Coronary artery disease Heart attack Social History Smoking Status: Never smoker alcohol intake: current alcohol intake frequency: a few times a month substance use type: denies use current occupational status: employed Travel in the last 8 weeks?: None Have you lived/traveled outside US in past 30 days?: No Contact w/someone who lives/traveled outside US past 30 days?: No Exposure to someone with infectious disease in past 14 days?: No Do you have a fever (greater than 100.4 F or 38 C)?: No Have you tested positive for COVID-19?: No Exposed to someone with COVID-19 in past 14 days?: No Do you have a sore throat?: No Do you have a cough?: No Do you have any weakness?: No Do you have any diarrhea?: No Are you experiencing any unusual bleeding?: No Do you have any muscle aches/pain?: No Do you have any abdominal pain?: No Are you experiencing loss of taste or smell?: No Other Medical History Have you received the Flu Vaccine for this season: No Have you received the Pneumonia Vaccine: No ROS Obtained: Yes Systems reviewed as appropriate & no additional complaints except as documented Per HPI Physical Exam General General appearance: alert and in no apparent distress Head Head exam: atraumatic and normocephalic Eye Eye exam: Present PERRL and EOMI ENT ENT exam: Present mucous membranes moist Neck Neck exam: Present normal inspection and full ROM Chest Chest inspection: Present symmetric chest wall rise Respiratory Respiratory exam: Present normal lung sounds bilaterally; Absent respiratory distress, wheezes or stridor Cardiovascular Cardiovascular exam: Present regular rate and normal rhythm Abdominal Exam Abdominal exam: Present soft; Absent distention or tenderness Extremities Exam Extremities exam: Present full ROM and normal capillary refill; Absent edema Neurological Exam Neurological exam: Present alert and oriented X3; Absent motor sensory deficit Psychiatric Psychiatric exam: Present normal affect and normal mood Skin Skin exam: Present warm and dry Medical Decision Making Medical Records Medical records reviewed: Yes I reviewed the patient's medical records. Screening: Per USPSTF and CDC recommendations, given the prevalence of disease in our region, it is our hospital?s policy to screen for HIV and viral Hepatitis for all patients aged 18 and over and those with ongoing risk factors. Alejo Inquiry Pt receiving controlled substance: No Vital Signs: 03/19/25 01:36 03/19/25 01:37 03/19/25 01:40 Temperature 98.1 F Temperature Source Oral Pulse Rate 77 71 Pulse Rate [Right] 74 Respiratory Rate 22 Blood Pressure 203/66 H 184/70 H Blood Pressure [Right Arm] 184/70 H Blood Pressure Mean [Right Arm] 108 02 Sat by Pulse Oximetry 99 98 99 Oxygen Delivery Method Room Air 03/19/25 01:58 03/19/25 02:01 Temperature Temperature Source Pulse Rate 65 64 Pulse Rate [Right] Respiratory Rate 13 15 Blood Pressure 179/77 H 158/75 H Blood Pressure [Right Arm] Blood Pressure Mean [Right Arm] 02 Sat by Pulse Oximetry 99 100 Oxygen Delivery Method Lab Data Lab Results 03/19/25 01:41: WBC 8.6, RBC 4.07 L, Hgb 12.3, Hct 36.0 L, MCV 88.5, MCH 30.2, MCHC 34.2, RDW 11.5, Plt Count 294, MPV 8.1, Neut % (Auto) 51.2, Lymph % (Auto) 33.7, Barren % (Auto) 9.1, Eos % (Auto) 3.8, Baso % (Auto) 1.0, Neut # (Auto) 4.4, Lymph # (Auto) 2.9, Barren # (Auto) 0.8, Eos # (Auto) 0.3, Baso # (Auto) 0.1, Sodium 132 L, Potassium 3.8, Chloride 101, Carbon Dioxide 23, Anion Gap 11.8, BUN 15, Creatinine 1.10 H, Estimated Creat Clear 45, Estimated GFR 49 L, Est GFR ( Amer) 59, Glucose 110 H, Calcium 9.6, Total Bilirubin 0.5, AST 46 H, ALT 70, Alkaline Phosphatase 101, Troponin I < 0.01, Total Protein 7.5, Albumin 4.6, Globulin 2.9, Albumin/Globulin Ratio 1.6 03/19/25 01:41 03/19/25 01:41 Orders (Tests/Meds): ORDERS Category Date Time Status CXR --portable [XR chest portable] Stat Exams 03/19/25 01:53 Taken CBC w/Auto Diff [Complete Blood Count Auto Diff] Stat Lab 03/19/25 01:41 Completed CMP [Comprehensive Metabolic Panel] Stat Lab 03/19/25 01:41 Completed Trop I [Troponin I] Stat Lab 03/19/25 01:41 Completed Troponin I Q3H Lab 03/19/25 05:00 Ordered Troponin I Q3H Lab 03/19/25 08:00 Ordered Medical Decision Narrative: In summary, this 69-year-old female with comorbidities described in the HPI presents to the emergency department today with concerns of high blood pressure. On initial evaluation patient is hypertensive but otherwise hemodynamically stable, afebrile, GCS 15, no neurologic deficits, overall very well-appearing, benign cardiopulmonary exam, no peripheral edema, unremarkable exam. Differential diagnosis includes but is not limited to asymptomatic hypertension, I considered hypertensive urgency or emergency though I have lower suspicion for these, I considered electrolyte abnormality, kidney dysfunction, arrhythmia, among others.. Based on these concerns, I ordered hematologic and serum labs, EKG, cardiac enzyme, chest x-ray. ECG personally interpreted demonstrates sinus bradycardia, rate 59, normal axis, normal IL and QTc, no STEMI. No medications administered in the ER. Labs personally reviewed demonstrate no leukocytosis or anemia, normal platelets, CMP with trace hyponatremia which is nonactionable at this time, creatinine 1.1, it was 1.0 earlier this summer. No evidence of KAYLA or significant kidney dysfunction. Troponin undetectably low less than 0.01 reassuring against cardiac event or strain. On reassessment patient's blood pressure has steadily been spontaneously improving without intervention in the ER. Her current blood pressure is 138/59. I believe she is appropriate for discharge at this time and she is comfortable with this plan. I provided follow-up appointment with cardiology on Friday03/21/2025 at 9 AM. Patient was given instructions on symptomatic management, follow up instructions, and return precautions for the emergency department. Patient indicated understanding and was discharged in stable condition. Critical Care Critical Care Time Critical Care Time: No
== END 2025-03-19 02:40 | disposition home or self-care (01) ==
PROVIDERS: Emergency Provider Emergency Medicine; PCP Family Medicine
DX: R00.2 Palpitations (principal); I10 Essential (primary) hypertension; I48.91 Unspecified atrial fibrillation; Z79.01 Long term (current) use of anticoagulants
CPT/HCPCS: 71045; 80053; 84484; 85025; 93005; 99284

== ENCOUNTER 2025-03-23 07:19 | Outpatient (CLI) | payer MEDICARE, SELFPAY ==
--- OUTSIDE RECORDS SUMMARY | 2025-03-23 07:22 | XMS_ITS | Clinical Summary ---
Author Organization [facility] Address [address] [place] [address] Care Team Providers Care Housesmith Name Role Phone Darren Wagner MD Primary Care Provider [phone] Allergies Active Allergy Reactions Criticality Noted Date [...] 2024 Insurance [employer] MEDICARE ADVANTAGE Care Teams Housesmith Relationship Specialty Start Date End Date Darren Wagner MD [address] [place] [address] PCP - General Family Medicine 09/16/16
--- OUTSIDE RECORDS SUMMARY | 2025-03-23 07:22 | XMS_ITS | Clinical Summary ---
Author Organization [facility] Address [address] [place] [address] Care Team Providers Care Cnc Programmer Name Role Phone Julissa Hernandez CAMERON Primary Care Provider [phone] Allergies Active Allergy Reactions Criticality Noted Date [...] 2004 UKY-Zoster Vaccines (1 of 2) 2004 [id number] Vaccine (3 - season) 2024 06/22/2020, 05/25/2020 [...] this topic Insurance HUMANA MEDICARE Care Teams Cnc Programmer Relationship Specialty Start Date End Date Julissa Hernandez APRN [address] [place] [address] PCP - General 03/10/21
--- OUTSIDE RECORDS SUMMARY | 2025-03-23 07:22 | XMS_ITS | Referral Summary ---
Author Organization [employer] ([place], [place], [place], [place], [place]) Address [address] [place] [address] Care Team Providers Care Interior Design Professor Name Role Phone Unavailable Primary Care Provider [...] (40 mg total) before bedtime. 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
--- OUTSIDE RECORDS SUMMARY | 2025-03-23 07:22 | XMS_ITS | Clinical Summary ---
Author Organization [employer] ([place], [place], [place], [place], [place]) Address [address] [place] [address] Care Team Providers Care Supervisor Testing Name Role Phone Unavailable Primary Care Provider [...] (40 mg total) before bedtime. 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
[2025-03-23 08:06] LABS: Hematocrit 36.0 % (37.0-47.0); Hemoglobin 11.9 g/dL (12.2-16.2); Immature Granulocytes % 1.0 %; Mean Corpuscular HGB Conc 33.1 g/dL (31.8-35.4); Mean Corpuscular Hemoglobin 29.7 pg (27.0-31.2); Mean Corpuscular Volume 89.8 fl (81-99); Nucleated Red Blood Cells % 0 %; Platelet Count 319 K/mm3 (142-424); Red Blood Count 4.01 M/mm3 (4.20-5.40); Red Cell Distribution Width-SD 37.6 fL; White Blood Count 5.8 K/mm3 (4.8-10.8)
[2025-03-23 08:38] LABS: Albumin Level 4.3 g/dl (3.5-5.0); Chloride 105 mmol/L (98-107); Potassium 4.5 mmoL/L (3.5-5.1); Sodium 137 mmol/L (136-145)
[2025-03-23 08:40] LABS: Alanine Aminotransferase 42 U/L (12-78); Anion Gap 11.5 mEq/L (5-15); Aspartate Amino Transferase 31 U/L (14-36); Bilirubin,Unconjugated 0.3 mg/dL (0.0-1.1); Blood Urea Nitrogen 13 mg/dl (7-17); Carbon Dioxide 25 mmol/L (22.0-30.0); Creatinine,Serum 1.10 mg/dl (0.52-1.04); Estimated Glomerular Filt Rate 49 ml/min (>60); GFR (African American) 59 ML/MIN (>60)
[2025-03-23 08:41] LABS: Alkaline Phosphatase 80 U/L (38-126); Bilirubin,Direct 0.0 mg/dl (0.0-0.4); Bilirubin,Indirect 0.4 mg/dL (0.0-0.9); Bilirubin,Total 0.4 mg/dl (0.2-1.3); Calcium 10.1 mg/dl (8.4-10.2); Cholesterol 185 mg/dl (140-200); Glucose 93 mg/dl (74-100); HDL Cholesterol 106 mg/dl (40-60); Magnesium 2.0 mg/dl (1.6-2.3); Total Protein,Serum 6.4 g/dl (6.3-8.2); Triglycerides 134 mg/dl (30-150)
[2025-03-23 08:43] LABS: Digoxin 1.00 ng/ml (0.2-2.00)
[2025-03-23 08:59] LABS: Free T4 (Free Thyroxine) 0.70 ng/dl (0.78-2.19)
[2025-03-23 09:13] LABS: Thyroid Stimulating Hormone 2.65 uIU/mL (0.465-4.68)
== END 2025-03-23 23:59 | disposition home or self-care (01) ==
LOC: LAB 07:20
PROVIDERS: PCP Family Medicine; Visit Provider Physician Assistant
DX: E78.2 Mixed hyperlipidemia (principal); I10 Essential (primary) hypertension; I48.0 Paroxysmal atrial fibrillation
CPT/HCPCS: 36415; 80048; 80061; 80076; 80162; 83735; 84439; 84443; 85025